=== PATIENT | female | born 1995 | race Caucasian/White ===

== ENCOUNTER 2019-07-16 09:16 | Outpatient (CLI) | payer BC ==
[2019-07-16 14:08] LABS: T4 (THYROXINE) 6.94 ug/dL (6.09-12.23)
[2019-07-16 14:11] LABS: THYROID STIMULATING HORMONE 1.33 uIU/mL (0.34-5.60)
[2019-07-16 14:17] LABS: PROLACTIN 7.88 ng/mL
== END 2019-07-16 23:59 | disposition home or self-care (01) ==
LOC: LAB.WCP 09:16
PROVIDERS: ATTEND Nurse Practitioner Obstetrics & Gynecology
DX: N97.0 Female infertility associated with anovulation (principal)
CPT/HCPCS: 36415; 84146; 84436; 84443

== ENCOUNTER 2019-07-21 10:59 | Outpatient (CLI) | payer BC | END 2019-07-21 23:59 | disposition home or self-care (01) | LOC: LAB.R 10:59 | PROVIDERS: ATTEND Nurse Practitioner Obstetrics & Gynecology | DX: N97.0 Female infertility associated with anovulation (principal) | CPT/HCPCS: 84144 ==

== ENCOUNTER 2019-07-26 08:00 | Outpatient (CLI) | payer BC | END 2019-07-26 23:59 | disposition home or self-care (01) | LOC: LAB.N 08:00 | PROVIDERS: ATTEND Nurse Practitioner Obstetrics & Gynecology | DX: Z32.01 Encounter for pregnancy test, result positive (principal) | CPT/HCPCS: 36415; 84702 ==

== ENCOUNTER 2019-07-30 12:21 | Outpatient (CLI) | payer OTHER | END 2019-07-30 12:22 | disposition critical access hospital (66) | LOC: EMS 12:21 | PROVIDERS: ATTEND Surgery | DX: O99.89 Other specified diseases and conditions complicating pregnancy, childbirth and the puerperium (principal); R55 Syncope and collapse; R10.32 Left lower quadrant pain | CPT/HCPCS: A0425; A0427 ==

== ENCOUNTER 2019-07-30 12:44 | Emergency (ER) | payer BC, OTHER ==
--- NOTE | 2019-07-30 12:54 | ED Physician Documentation ---
History of Present Illness - Stated complaint Stated Complaint: SYNCOPAL - History obtained from History obtained from: Patient - History of Present Illness Timing: Today ( at 5 weeks gestation, she has had some lower abdominal cramping today. No bleeding or fluid loss. Had a cramp and then had a short syncopal episode without injury while walking in her home. She feels fine now. No associated chest pain or trouble breathing. No significant nausea or vomiting. No diarrhea.) Review of Systems Constitutional: denies: Fever, Chills Cardiac: denies: Chest pain / pressure, Palpitations Respiratory: denies: Dyspnea, Cough GI: reports: Abdominal Pain. denies: Nausea, Vomiting, Diarrhea : denies: Dysuria, Frequency PD PAST MEDICAL HISTORY - Allergies Allergies/Adverse Reactions: Allergies Allergy/AdvReac Type Severity Reaction Status Date / Time No Known Drug Allergies Allergy Verified 07/30/19 12:48 PD ED PE NORMAL - Vitals Vital signs reviewed: Yes - General General: Alert and oriented X 3, No acute distress - Cardiac Cardiac: RRR, No murmur - Respiratory Respiratory: No respiratory distress, Clear bilaterally - Abdomen Abdomen: Normal bowel sounds, Soft, Non tender - Female Female : Other (Bedside ultrasound demonstrates a very full bladder without obvious intrauterine ) - Back Back: No CVA TTP, No spinal TTP - Extremities Extremities: No edema, No calf tenderness / cord - Neuro Neuro: Alert and oriented X 3, Normal speech Results - Vitals Vitals: Vital Signs - 24 hr 07/30/19 07/30/19 12:49 12:59 Temperature 36.9 C Heart Rate 86 86 Respiratory 16 16 Rate Blood Pressure 111/80 111/80 O2 Saturation 100 100 Oxygen O2 Source Room air - EKG (time done) 1259 Rate: Rate (enter#) (101) Rhythm: Sinus tachycardia [place]: Normal Intervals: Normal MT QRS: Normal Ischemia: Normal ST segments Computer interpretation: Agree with computer - Labs Labs: Laboratory Tests 07/30/19 07/30/19 07/30/19 12:58 13:15 13:15 WBC 4.9 RBC 4.16 L Hgb 11.3 L Hct 35.0 L MCV 84.1 MCH 27.2 MCHC 32.3 RDW 14.8 Plt Count 203 MPV 10.6 Neut # (Auto) 3.0 Lymph # (Auto) 1.4 L [place] # (Auto) 0.4 Eos # (Auto) 0.1 Baso # (Auto) 0.0 Absolute Nucleated RBC 0.00 Nucleated RBC % 0.0 Sodium 138 Potassium 3.7 Chloride 106 Carbon Dioxide 24 Anion Gap 8.0 BUN 9 Creatinine 0.6 Estimated GFR (MDRD) 123 Glucose 94 Calcium 8.8 Total Bilirubin 0.9 AST 18 ALT 16 Alkaline Phosphatase 50 Total Protein 7.0 Albumin 4.4 Globulin 2.6 Albumin/Globulin Ratio 1.7 Lipase 33 HCG, Quant Urine Color YELLOW Urine Clarity HAZY Urine pH 7.5 Ur Specific [place] 1.010 Urine Protein NEGATIVE Urine Glucose (UA) NEGATIVE Urine Ketones NEGATIVE Urine Occult Blood NEGATIVE Urine Nitrite NEGATIVE Urine Bilirubin NEGATIVE Urine Urobilinogen 0.2 (NORMAL) Ur Leukocyte Esterase TRACE H Urine RBC None Seen Urine WBC 6-10 H Ur Squamous Epith Cells MANY Squamous H Urine Bacteria Few Ur Microscopic Review INDICATED Urine Culture Comments NOT INDICATED 07/30/19 07/30/19 13:15 13:35 WBC RBC Hgb Hct MCV MCH MCHC RDW Plt Count MPV Neut # (Auto) Lymph # (Auto) [place] # (Auto) Eos # (Auto) Baso # (Auto) Absolute Nucleated RBC Nucleated RBC % Sodium Potassium Chloride Carbon Dioxide Anion Gap BUN Creatinine Estimated GFR (MDRD) Glucose Calcium Total Bilirubin AST ALT Alkaline Phosphatase Total Protein Albumin Globulin Albumin/Globulin Ratio Lipase HCG, Quant 3584.00 Urine Color YELLOW Urine Clarity CLEAR Urine pH 7.0 Ur Specific [place] 1.015 Urine Protein NEGATIVE Urine Glucose (UA) NEGATIVE Urine Ketones TRACE Urine Occult Blood NEGATIVE Urine Nitrite NEGATIVE Urine Bilirubin NEGATIVE Urine Urobilinogen 0.2 (NORMAL) Ur Leukocyte Esterase NEGATIVE Urine RBC Urine WBC Ur Squamous Epith Cells Urine Bacteria Ur Microscopic Review NOT INDICATED Urine Culture Comments NOT INDICATED - Rads (name of study) OB sono Radiology: See rad report (Likely gestational sac concordant with dates without other findings consistent with ectopic) PD MEDICAL DECISION MAKING - ED course ED course: 24-year-old woman presents with a syncopal episode in early . Ectopic is considered but unlikely based on the work-up today. Otherwise a negative work-up. Anemia was discussed with the patient, she says this is chronic and long- standing. Departure - Departure Disposition: 01 Home, Self Care Clinical Impression: Syncope Qualifiers: Syncope type: vasovagal syncope Qualified Code(s): R55 - Syncope and collapse Qualifiers: Weeks of gestation: less than 8 weeks Qualified Code(s): Z3A.01 - Less than 8 weeks gestation of Condition: Good Record reviewed to determine appropriate education?: Yes Instructions: ED Syncope Vasovagal Comments: If you develop more severe cramping, bleeding, or otherwise worsening symptoms please return for reevaluation. Otherwise follow-up with your OB as scheduled.
[2019-07-30 13:10] LABS: BILIRUBIN,URINE NEGATIVE (NEGATIVE); GLUCOSE, URINE (UA) NEGATIVE (NEGATIVE); KETONES,URINE (UA) NEGATIVE (NEGATIVE); LEUKOCYTE ESTERASE, URINE TRACE (NEGATIVE); NITRITE,URINE NEGATIVE (NEGATIVE); OCCULT BLOOD,URINE NEGATIVE (NEGATIVE); PH,URINE 7.5 PH (5.0-7.5); PROTEIN,URINE NEGATIVE (NEGATIVE); UROBILINOGEN,URINE 0.2 (NORMAL) E.U./dL (NORMAL)
[2019-07-30 13:11] LABS: CLARITY,URINE HAZY (CLEAR)
[2019-07-30 13:23] LABS: BASOPHILS % (AUTO) 0.2 %; EOSINOPHILS # (AUTO) 0.1 10^3/uL (0.0-0.7); EOSINOPHILS % (AUTO) 2.2 %; HGB - HEMOGLOBIN 11.3 g/dL (12.0-16.0); LYMPHOCYTES # (AUTO) 1.4 10^3/uL (1.5-3.5); MEAN CORPUSCULAR HEMOGLOBIN 27.2 pg (27.0-31.0); MEAN CORPUSCULAR HGB CONC 32.3 g/dL (32.0-36.0); MEAN CORPUSCULAR VOLUME 84.1 fL (81.0-99.0); MEAN PLATELET VOLUME 10.6 fL (7.9-10.8); MONOCYTES # (AUTO) 0.4 10^3/uL (0.0-1.0); MONOCYTES % (AUTO) 8.2 %; NEUTROPHILS % (AUTO) 60.2 %; PLT - PLATELET COUNT 203 10^3/uL (130-450); RED BLOOD COUNT 4.16 10^6/uL (4.20-5.40); RED CELL DISTRIBUTION WIDTH 14.8 % (12.0-15.0); WHITE BLOOD COUNT 4.9 x10^3/uL (4.8-10.8)
[2019-07-30 13:25] LABS: BACTERIA,URINE Few /HPF (None Seen); RBC,URINE None Seen /HPF (0-5); SQUAMOUS EPITHELIAL CELL,UR MANY Squamous (<= Few)
[2019-07-30 13:38] LABS: ALBUMIN 4.4 g/dL (3.2-5.5); ALBUMIN/GLOBULIN RATIO 1.7 (1.0-2.2); BILIRUBIN,TOTAL 0.9 mg/dL (0.2-1.0); CALCIUM 8.8 mg/dL (8.5-10.3); CREATININE 0.6 mg/dL (0.4-1.0)
[2019-07-30 13:44] LABS: BILIRUBIN,URINE NEGATIVE (NEGATIVE); CLARITY,URINE CLEAR (CLEAR); GLUCOSE, URINE (UA) NEGATIVE (NEGATIVE); KETONES,URINE (UA) TRACE mg/dL (NEGATIVE); LEUKOCYTE ESTERASE, URINE NEGATIVE (NEGATIVE); NITRITE,URINE NEGATIVE (NEGATIVE); OCCULT BLOOD,URINE NEGATIVE (NEGATIVE); PROTEIN,URINE NEGATIVE (NEGATIVE); UROBILINOGEN,URINE 0.2 (NORMAL) E.U./dL (NORMAL)
--- NOTE | 2019-07-30 15:21 | Ultrasound Report ---
Reason: pelvic pain, syncope Procedure Date: 07/30/2019 Accession Number: [id number] / [id number] Procedure: US - OB Transvaginal CPT Code: Final Report FULL RESULT: EXAM: FIRST TRIMESTER OBSTETRIC ULTRASOUND (Less than 11 weeks) EXAM DATE: 07/30/2019 03:03 PM. CLINICAL HISTORY: Pelvic pain. Syncope. LMP 06/24/2019. HCG 3584. LMP: 06/24/2019. COMPARISONS: None. TECHNIQUE: Transabdominal and transvaginal ultrasound examination with static image documentation. CLINICAL DATES: EGA 5 weeks, 2 days with RUBIO 03/30/2020 based on LMP. ASSESSMENT: Gestational Sac: Single intrauterine cystic structure is seen within the endometrial cavity. If this were to represent a gestational sac the mean gestational sac diameter: 5.2 mm = 5 weeks, 2 days. Embryo: CRL (crown-rump length) may be visualized although not definitively and may measure 1.8 mm. Cardiac activity: None present. Yolk sac: Not definitively seen. Amniotic fluid: Not accurately assessed at this gestational age. Early placenta: Not visible at this gestational age. Other: No perigestational fluid collection demonstrated. MATERNAL STRUCTURES: Uterus: Retroverted. Unremarkable. Cervix: Closed. Right Ovary/Adnexa: The ovary measures 4.5 x 2.1 x 2.3 cm, volume 11.3 cc. Normal echotexture a normal blood flow. Thick-walled cystic 1.5 x 1.0 x 0.8 cm lesion with peripheral vascularity most likely represents a corpus luteal cyst.. Left Ovary/Adnexa: The ovary measures 3.1 x 1.6 x 1.9 cm, volume 4.9 cc. Unremarkable. Free Fluid: Small to moderate volume of pelvic free fluid.. Other: None. IMPRESSION: 1. Intrauterine cystic collection which could represent a gestational sac, cyst or focal fluid. If this were to represent a gestational sac this would correspond with an estimated gestational age of 5 weeks, 2 days with RUBIO 03/30/2020 based on gestational sac assessment, which is concordant with clinical dates. No yolk sac or pole are definitively seen although suggested. No secondary findings of ectopic are identified. Recommend close clinical follow-up and correlation with serial serum beta hCG and follow-up ultrasound if indicated in 7-10 days. 2. Assigned dating is RUBIO 03/30/2020 based on LMP. 3. Normal ovaries with a right ovarian corpus luteal 1.5 cm cyst. RADIA
[2019-07-30 16:12] VITALS: BP 112/80
== END 2019-07-30 16:11 | disposition home or self-care (01) ==
LOC: EDUNIT# → ED 12:44
DX: O99.89 Other specified diseases and conditions complicating pregnancy, childbirth and the puerperium (principal); R55 Syncope and collapse; R00.0 Tachycardia, unspecified; Z3A.01 Less than 8 weeks gestation of pregnancy
CPT/HCPCS: 36415; 76801; 76817; 80053; 81001; 81003; 83690; 84702; 85025; 87086; 93005; 99283; 99284

== ENCOUNTER 2019-08-13 10:04 | Outpatient (CLI) | payer BC ==
--- NOTE | 2019-08-13 11:45 | Ultrasound Report ---
Reason: TEST POSITIVE Procedure Date: 08/13/2019 Accession Number: [id number] / [id number] Procedure: US - OB First Trimester CPT Code: Final Report FULL RESULT: EXAM: FIRST TRIMESTER OBSTETRIC ULTRASOUND (Less than 11 weeks) EXAM DATE: 08/13/2019 11:17 AM. CLINICAL HISTORY: TEST POSITIVE. LMP: 06/26/2019. COMPARISONS: None. TECHNIQUE: Transabdominal and transvaginal ultrasound examination with static image documentation. CLINICAL DATES: EGA 6 weeks 6 days with RUBIO 04/01/2020 based on LMP . ASSESSMENT: Gestational Sac: Single intrauterine. Mean gestational sac diameter: 19.2 mm = 6 weeks 6 days. Embryo: CRL (crown-rump length) 8.7 mm = 6 weeks 6 days. Cardiac activity: 1343 beats per minute. Yolk sac: 4.5 mm. Amniotic fluid: Not accurately assessed at this gestational age. Early placenta: Not visible at this gestational age. Other: Small perigestational anechoic fluid collection demonstrated 0.4 x 0.6 x 0.5 cm and 0.6 x 0.6 x 0.6 cm.. MATERNAL STRUCTURES: Uterus: Retroverted. Unremarkable. Cervix: Closed. Right Ovary/Adnexa: The ovary measures 5 x 2.2 x 2.1 cm, volume 12 cc. Corpus luteal cyst 2.6 cm. Left Ovary/Adnexa: The ovary measures 1.8 x 2.8 x 1.7 cm, volume 4.3 cc. Unremarkable. Free Fluid: Small. Other: None. IMPRESSION: 1. Single viable intrauterine at EGA 6 weeks 6 days with RUBIO 04/01/2020 based on crown-rump length, which is concordant with clinical dates. Small perigestational fluid collections largest 0.6 cm RADIA
== END 2019-08-13 10:05 | disposition home or self-care (01) ==
LOC: DI 10:04
PROVIDERS: ATTEND Nurse Practitioner Obstetrics & Gynecology
DX: Z32.01 Encounter for pregnancy test, result positive (principal)
CPT/HCPCS: 76801

== ENCOUNTER 2019-08-20 07:00 | Outpatient (CLI) | payer BC, OTHER ==
[2019-08-20 14:52] LABS: MUDS CUTOFF CONCENTRATIONS CUTOFF CONC BELOW:
[2019-08-20 15:14] LABS: AMPHETAMINE SCREEN,URINE NEGATIVE (NEGATIVE); BENZODIAZEPINES SCREEN, URINE NEGATIVE (NEGATIVE); COCAINE SCREEN URINE NEGATIVE (NEGATIVE); METHADONE SCREEN, URINE NEGATIVE (NEGATIVE); METHAMPHETAMINES SCREEN, URINE NEGATIVE (NEGATIVE); OPIATE SCREEN, URINE NEGATIVE (NEGATIVE); OXYCODONE SCREEN, URINE NEGATIVE (NEGATIVE); PROPOXYPHENE SCREEN, URINE NEGATIVE (NEGATIVE); TRICYCLIC ANTIDEPRESSANT,URINE NEGATIVE (NEGATIVE)
[2019-08-20 18:34] LABS: TRICHOMONAS VAGINALIS DNA NEGATIVE (NEGATIVE)
== END 2019-08-20 23:59 | disposition home or self-care (01) ==
LOC: LAB.R 07:00
PROVIDERS: ATTEND Nurse Practitioner Obstetrics & Gynecology
DX: Z36.89 Encounter for other specified antenatal screening (principal)
CPT/HCPCS: 80306; 87086; 87491; 87591; 87661

== ENCOUNTER 2019-09-21 07:00 | Outpatient (CLI) | payer OTHER | END 2019-09-21 23:59 | disposition home or self-care (01) | LOC: LAB.R 07:00 | PROVIDERS: ATTEND Nurse Practitioner Obstetrics & Gynecology | DX: R30.0 Dysuria (principal) | CPT/HCPCS: 87086 ==

== ENCOUNTER 2019-10-01 16:43 | Emergency (ER) | payer OTHER ==
[2019-10-01 17:17] LABS: BASOPHILS % (AUTO) 0.2 %; EOSINOPHILS # (AUTO) 0.1 10^3/uL (0.0-0.7); EOSINOPHILS % (AUTO) 1.7 %; HGB - HEMOGLOBIN 11.3 g/dL (12.0-16.0); LYMPHOCYTES # (AUTO) 1.6 10^3/uL (1.5-3.5); LYMPHOCYTES % (AUTO) 24.2 %; MEAN CORPUSCULAR HEMOGLOBIN 27.4 pg (27.0-31.0); MEAN CORPUSCULAR HGB CONC 32.8 g/dL (32.0-36.0); MEAN CORPUSCULAR VOLUME 83.5 fL (81.0-99.0); MEAN PLATELET VOLUME 10.9 fL (7.9-10.8); MONOCYTES # (AUTO) 0.4 10^3/uL (0.0-1.0); MONOCYTES % (AUTO) 5.6 %; NEUTROPHILS # (AUTO) 4.4 10^3/uL (1.5-6.6); PLT - PLATELET COUNT 181 10^3/uL (130-450); RED BLOOD COUNT 4.13 10^6/uL (4.20-5.40); RED CELL DISTRIBUTION WIDTH 13.5 % (12.0-15.0); WHITE BLOOD COUNT 6.4 x10^3/uL (4.8-10.8)
[2019-10-01 17:26] LABS: ALBUMIN 3.7 g/dL (3.2-5.5); ALBUMIN/GLOBULIN RATIO 1.1 (1.0-2.2); BILIRUBIN,TOTAL 0.6 mg/dL (0.2-1.0); CALCIUM 9.5 mg/dL (8.5-10.3); CREATININE 0.5 mg/dL (0.4-1.0)
[2019-10-01 17:57] LABS: BILIRUBIN,URINE NEGATIVE (NEGATIVE); GLUCOSE, URINE (UA) NEGATIVE (NEGATIVE); KETONES,URINE (UA) NEGATIVE (NEGATIVE); LEUKOCYTE ESTERASE, URINE NEGATIVE (NEGATIVE); NITRITE,URINE NEGATIVE (NEGATIVE); OCCULT BLOOD,URINE NEGATIVE (NEGATIVE); PROTEIN,URINE NEGATIVE (NEGATIVE); UROBILINOGEN,URINE 1 (NORMAL) E.U./dL (NORMAL)
[2019-10-01 17:59] LABS: CLARITY,URINE CLEAR (CLEAR)
[2019-10-01 18:00] LABS: HCG UR QUAL POSITIVE
--- NOTE | 2019-10-01 20:06 | ED Physician Documentation ---
PD HPI FEMALE - Stated complaint Stated Complaint: PELVIC PX/HIP PX - Chief complaint Chief Complaint: Abd Pain - History obtained from History obtained from: Patient - History of Present Illness Timing - onset: How many weeks ago (3-4) Timing - duration: Weeks Timing - details: Gradual onset, Waxing and waning Pain level max: 8 Associated symptoms: Back pain, Pelvic pain. 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 Her pain persists and she called her mechanic senior today and was advised to come to ED for further evaluation) Review of Systems Constitutional: denies: Fever, Chills, Sweats GI: reports: Nausea. denies: Abdominal Pain, Vomiting : reports: Now EGA (15 weeks). denies: Dysuria, Frequency, Vaginal bleeding Musculoskeletal: reports: Back pain (pelvic pain radiates to back) PD PAST MEDICAL HISTORY - Past Medical History Past Medical History: No - Past Surgical History Past Surgical History: No - Present Medications Home Medications: Ambulatory Orders Medication Instructions Recorded Confirmed No Known Home Medications 10/02/19 10/02/19 - Allergies Allergies/Adverse Reactions: Allergies Allergy/AdvReac Type Severity Reaction Status Date / Time latex AdvReac Itching Verified 10/01/19 16:54 - Social History Does the pt smoke?: No Smoking Status: Never smoker Does the pt drink ETOH?: No Does the pt have substance abuse?: No - Immunizations Immunizations are current?: Yes - POLST Patient has POLST: No PD ED PE NORMAL - Vitals Vital signs reviewed: Yes - General General: Alert and oriented X 3, No acute distress, Well developed/nourished - HEENT HEENT: Moist mucous membranes - Cardiac Cardiac: RRR, No murmur - Respiratory Respiratory: No respiratory distress, Clear bilaterally - Abdomen Abdomen: Soft, Non distended, Other (mild tenderness across anterior pelvis without rebound or guarding) - Back Back: No CVA TTP Results - Vitals Vitals: Oxygen O2 Source Room air - Labs Labs: Laboratory Tests 0110/01/19 10/01/19 17:05 17:05 17:30 WBC 6.4 RBC 4.13 L Hgb 11.3 L Hct 34.5 L MCV 83.5 MCH 27.4 MCHC 32.8 RDW 13.5 Plt Count 181 MPV 10.9 H Neut # (Auto) 4.4 Lymph # (Auto) 1.6 [place] # (Auto) 0.4 Eos # (Auto) 0.1 Baso # (Auto) 0.0 Absolute Nucleated RBC 0.00 Nucleated RBC % 0.0 Sodium 135 Potassium 3.2 L Chloride 103 Carbon Dioxide 23 Anion Gap 9.0 BUN 6 Creatinine 0.5 Estimated GFR (MDRD) 152 Glucose 101 H Calcium 9.5 Total Bilirubin 0.6 AST 15 ALT 11 Alkaline Phosphatase 45 Total Protein 7.0 Albumin 3.7 Globulin 3.3 Albumin/Globulin Ratio 1.1 Lipase 40 Urine Color YELLOW Urine Clarity CLEAR Urine pH 6.0 Ur Specific [place] 1.025 Urine Protein NEGATIVE Urine Glucose (UA) NEGATIVE Urine Ketones NEGATIVE Urine Occult Blood NEGATIVE Urine Nitrite NEGATIVE Urine Bilirubin NEGATIVE Urine Urobilinogen 1 (NORMAL) Ur Leukocyte Esterase NEGATIVE Ur Microscopic Review NOT INDICATED Urine Culture Comments NOT INDICATED Urine HCG, Qual 10/01/19 17:30 WBC RBC Hgb Hct MCV MCH MCHC RDW Plt Count MPV Neut # (Auto) Lymph # (Auto) [place] # (Auto) Eos # (Auto) Baso # (Auto) Absolute Nucleated RBC Nucleated RBC % Sodium Potassium Chloride Carbon Dioxide Anion Gap BUN Creatinine Estimated GFR (MDRD) Glucose Calcium Total Bilirubin AST ALT Alkaline Phosphatase Total Protein Albumin Globulin Albumin/Globulin Ratio Lipase Urine Color Urine Clarity Urine pH Ur Specific [place] 1.025 Urine Protein Urine Glucose (UA) Urine Ketones Urine Occult Blood Urine Nitrite Urine Bilirubin Urine Urobilinogen Ur Leukocyte Esterase Ur Microscopic Review Urine Culture Comments Urine HCG, Qual POSITIVE - Rads (name of study) OB 14w+ US Radiology: Prelim report reviewed, See rad report PD MEDICAL DECISION MAKING - ED course Complexity details: reviewed results, re-evaluated patient, considered differential, d/w patient Departure - Departure Disposition: 01 Home, Self Care Clinical Impression: , Abdominal pain Condition: Good Instructions: ED Pelvic Pain Preg UKO 2 or 3 Tri Follow-Up: Jo Dickey, PILY, PLANT CHANGER [Primary Care Provider] - Discharge Date/Time: 10/02/19 00:34
--- NOTE | 2019-10-01 23:16 | Ultrasound Report ---
Reason: 15 weeks , pelvic pain Procedure Date: 10/01/2019 Accession Number: [id number] / [id number] Procedure: US - OB 14+ Weeks CPT Code: Final Report FULL RESULT: EXAM: LIMITED OBSTETRICAL ULTRASOUND EXAM DATE: 10/01/2019 09:54 PM. CLINICAL HISTORY: 15 weeks , pelvic pain. COMPARISON: None. TECHNIQUE: Real-time sonographic evaluation of the fetus performed by the coating machine operator helper. Multiple inbound sales representative static images were saved for review. Additional transvaginal imaging to more accurately evaluate cervical length/placental position/etc. DATING: Established EGA 14 weeks/2 days with RUBIO 7 . GENERAL EVALUATION [place] . Cardiac activity: 140 bpm. movement: Visualized. Presentation: Variable. Placenta: Low-lying position. Less than 2 cm from internal loss, likely due to early . Amniotic fluid: Normal. PAMELLA 11.7 cm. MVP 3.4 cm. BIOMETRY: BPD: 2.59 cm, 14 weeks 4 days HC: 9.79 cm, 14 weeks 4 days FL: 1.22 cm, 13 weeks 4 days AC: 8.12 cm, 14 weeks 3 days US age: 14 weeks 2 days, RUBIO of 03/29/2020. MATERNAL STRUCTURES Left ovary: 3.6 x 1.3 x 1.8 cm. Normal vascular flow seen. Cervix: Long and closed IMPRESSION: 1. Valladares live intrauterine with gestational age 14 weeks/2 days based on current ultrasound. 2. Low-lying placenta, less than 2 cm from internal os is likely secondary to early . Cervix long and closed. 3. Detailed anatomic survey and placental position to be reassessed between 18-20 weeks of gestation. RADIA
[2019-10-02 00:35] VITALS: BP 110/65
== END 2019-10-02 00:34 | disposition home or self-care (01) ==
LOC: ED 16:43
DX: O99.89 Other specified diseases and conditions complicating pregnancy, childbirth and the puerperium (principal); R10.2 Pelvic and perineal pain; O44.42 Low lying placenta NOS or without hemorrhage, second trimester; Z3A.14 14 weeks gestation of pregnancy
CPT/HCPCS: 36415; 76805; 80053; 81001; 81003; 81025; 83690; 85025; 87086; 99284

== ENCOUNTER 2019-10-08 09:56 | Outpatient (CLI) | payer OTHER | END 2019-10-08 09:57 | disposition critical access hospital (66) | LOC: EMS 09:56 | PROVIDERS: ATTEND Surgery | DX: O99.89 Other specified diseases and conditions complicating pregnancy, childbirth and the puerperium (principal); R55 Syncope and collapse; R10.30 Lower abdominal pain, unspecified | CPT/HCPCS: A0425; A0429 ==

== ENCOUNTER 2019-10-08 10:13 | Emergency (ER) | payer OTHER ==
[2019-10-08] MEDS ORDERED: SODIUM CHLORIDE 0.9% 1,000 ML IV ONE (10:39)
[2019-10-08 10:59] LABS: BASOPHILS % (AUTO) 0.2 %; EOSINOPHILS # (AUTO) 0.1 10^3/uL (0.0-0.7); EOSINOPHILS % (AUTO) 0.9 %; HGB - HEMOGLOBIN 10.5 g/dL (12.0-16.0); LYMPHOCYTES # (AUTO) 1.1 10^3/uL (1.5-3.5); LYMPHOCYTES % (AUTO) 19.9 %; MEAN CORPUSCULAR HEMOGLOBIN 27.7 pg (27.0-31.0); MEAN CORPUSCULAR HGB CONC 33.5 g/dL (32.0-36.0); MEAN CORPUSCULAR VOLUME 82.6 fL (81.0-99.0); MEAN PLATELET VOLUME 10.9 fL (7.9-10.8); MONOCYTES # (AUTO) 0.3 10^3/uL (0.0-1.0); NEUTROPHILS % (AUTO) 72.8 %; PLT - PLATELET COUNT 138 10^3/uL (130-450); RED BLOOD COUNT 3.79 10^6/uL (4.20-5.40); RED CELL DISTRIBUTION WIDTH 13.5 % (12.0-15.0); WHITE BLOOD COUNT 5.5 x10^3/uL (4.8-10.8)
[2019-10-08 11:07] LABS: ALBUMIN 3.3 g/dL (3.2-5.5); ALBUMIN/GLOBULIN RATIO 1.1 (1.0-2.2); BILIRUBIN,TOTAL 0.8 mg/dL (0.2-1.0); CALCIUM 8.5 mg/dL (8.5-10.3); CREATININE 0.5 mg/dL (0.4-1.0); TOTAL PROTEIN 6.3 g/dL (6.7-8.2)
--- NOTE | 2019-10-08 11:09 | ED Physician Documentation ---
PD HPI SYNCOPE - Stated complaint Stated Complaint: NEAR SYNCOPAL - Chief complaint Chief Complaint: Neuro - History obtained from History obtained from: Patient - History of Present Illness Witnessed: Witnessed Timing - onset: How many minutes ago (1) Duration: Minutes (1) Associated symptoms: Nausea / vomiting, Abdominal pain. No: Headache, Chest pain Contributing factors: Noxious stimulae (she was standing in line at store or such, and had onset of lower abd cramp with nausea, then felt lightheaded and lowered to the ground. No fall nor injury. Has had this happen abruptly a couple of other times during this . No vaginal bleeding. Has history of endometriosis in the past with surgery for adhesions in the past.). No: Recent med change, Decreased PO intake Injury occurred: No: Fell, Head injury, Neck injury Similar symptoms before: No diagnosis Recently seen: Clinic (normal visits.), Emergency Dept (had abd pain and syncope when agout 7 weeks . [place] to be dehydration at the time.) Review of Systems Constitutional: denies: Fever, Chills Nose: denies: Rhinorrhea / runny nose, Congestion Throat: denies: Sore throat Respiratory: denies: Cough GI: reports: Abdominal Pain (for several minutes, improved here in ER.), Nausea, Vomiting, Constipation. denies: Diarrhea : denies: Dysuria, Frequency Neurologic: denies: Generalized weakness, Confused, Altered mental status, Headache PD PAST MEDICAL HISTORY - Past Medical History Past Medical History: Yes Cardiovascular: None Respiratory: None Neuro: None Endocrine/Autoimmune: None GI: None MANAGING PARTNER: Endometriosis : None HEENT: None Psych: None Musculoskeletal: None Derm: None - Past Surgical History Past Surgical History: No - Present Medications Home Medications: Ambulatory Orders Medication Instructions Recorded Confirmed Docusate Sodium 100 mg PO DAILY #30 capsule 10/08/19 Naproxen 375 mg PO BID #20 tablet 10/08/19 - Allergies Allergies/Adverse Reactions: Allergies Allergy/AdvReac Type Severity Reaction Status Date / Time latex AdvReac Itching Verified 10/01/19 16:54 - Social History Does the pt smoke?: No Smoking Status: Never smoker Does the pt drink ETOH?: No Does the pt have substance abuse?: No - Immunizations Immunizations are current?: Yes - POLST Patient has POLST: No PD ED PE NORMAL - Vitals Vital signs reviewed: Yes - General General: Alert and oriented X 3, No acute distress, Well developed/nourished - HEENT HEENT: Moist mucous membranes, Pharynx benign - Neck Neck: Supple, no meningeal sign, No adenopathy - Cardiac Cardiac: RRR, No murmur - Respiratory Respiratory: Clear bilaterally, Other - Abdomen Abdomen: Normal bowel sounds, Soft, Non distended, No organomegaly, Other (gravid with fundus few cm below umbilicus c/w dates. bedside U/S showing normal movement, fluid, FHR, and no free fluid in pelvis. ) Results - Vitals Vitals: Oxygen O2 Source Room air - Labs Labs: Laboratory Tests 10/08/19 10/08/19 10/08/19 10:50 10:50 11:06 WBC 5.5 RBC 3.79 L Hgb 10.5 L Hct 31.3 L MCV 82.6 MCH 27.7 MCHC 33.5 RDW 13.5 Plt Count 138 MPV 10.9 H Neut # (Auto) 4.0 Lymph # (Auto) 1.1 L [place] # (Auto) 0.3 Eos # (Auto) 0.1 Baso # (Auto) 0.0 Absolute Nucleated RBC 0.00 Nucleated RBC % 0.0 Sodium 135 Potassium 3.6 Chloride 106 Carbon Dioxide 21 Anion Gap 8.0 BUN 8 Creatinine 0.5 Estimated GFR (MDRD) 152 Glucose 89 Calcium 8.5 Total Bilirubin 0.8 AST 14 ALT 13 Alkaline Phosphatase 42 Total Protein 6.3 L Albumin 3.3 Globulin 3.0 Albumin/Globulin Ratio 1.1 Lipase 32 Urine Color YELLOW Urine Clarity HAZY Urine pH 7.0 Ur Specific [place] 1.015 Urine Protein NEGATIVE Urine Glucose (UA) NEGATIVE Urine Ketones NEGATIVE Urine Occult Blood NEGATIVE Urine Nitrite NEGATIVE Urine Bilirubin NEGATIVE Urine Urobilinogen 1 (NORMAL) Ur Leukocyte Esterase NEGATIVE Urine RBC 0-5 Urine WBC 0-3 Ur Squamous Epith Cells MANY Squamous H Amorphous Sediment Few Urine Bacteria Many H Urine Casts 0-2 Granular Casts Urine Mucus Marked Strands Ur Microscopic Review INDICATED Urine Culture Comments NOT INDICATED PD MEDICAL DECISION MAKING - ED course Complexity details: reviewed results (bedside U/S shows normal movement, heart rate, and no free fluid in pelvis. her lower pain could be prior adhesions from endometriosis or cyst with . No obvious problem with the . ), considered differential, d/w patient Departure - Departure Disposition: Home, Self Care Clinical Impression: Lower abdominal pain, Syncope, near Qualifiers: Weeks of gestation: 16 weeks Qualified Code(s): Z3A.16 - 16 weeks gestation of Condition: Stable Record reviewed to determine appropriate education?: Yes Instructions: ED Abdominal Pain Unkn Cause Follow-Up: Jo Dickey CNM, ANTONIO [Primary Care Provider] - Prescriptions: Docusate Sodium 100 mg PO DAILY #30 capsule Naproxen 375 mg PO BID #20 tablet Comments: Stay well-hydrated. Consider short term anti-inflammatory of naproxen twice daily for a week. Add Tylenol if needed for pains. Also add docusate stool softener daily for the next several days to week and then as needed for constipation. Follow-up with your AIR DEFENCE OFFICER. The cause of your pain episode is not clear. Consider the possibility the uterus had an impact on prior adhesions or scar tissue in some of those were disrupted. That would be the reasoning on the anti-inflammatory over the next week. Forms: Activity restrictions Discharge Date/Time: 10/08/19 12:42
[2019-10-08 11:12] LABS: BILIRUBIN,URINE NEGATIVE (NEGATIVE); CLARITY,URINE HAZY (CLEAR); GLUCOSE, URINE (UA) NEGATIVE (NEGATIVE); KETONES,URINE (UA) NEGATIVE (NEGATIVE); LEUKOCYTE ESTERASE, URINE NEGATIVE (NEGATIVE); NITRITE,URINE NEGATIVE (NEGATIVE); OCCULT BLOOD,URINE NEGATIVE (NEGATIVE); PROTEIN,URINE NEGATIVE (NEGATIVE); UROBILINOGEN,URINE 1 (NORMAL) E.U./dL (NORMAL)
[2019-10-08 11:21] LABS: AMORPHOUS SEDIMENT,UR Few /LPF; BACTERIA,URINE Many /HPF (None Seen); MUCUS,URINE Marked Strands; RBC,URINE 0-5 /HPF (0-5); SQUAMOUS EPITHELIAL CELL,UR MANY Squamous (<= Few)
[2019-10-08] MEDS ORDERED: NAPROXEN 250 MG TABLET PO STA (11:41)
[2019-10-08] MEDS ORDERED: ACETAMINOPHEN 325 MG TABLET PO STA (11:41)
[2019-10-08] MEDS ORDERED: DOCUSATE SODIUM 100 MG CAPSULE PO STA (11:42)
[2019-10-08 12:42] VITALS: BP 118/79
== END 2019-10-08 12:42 | disposition home or self-care (01) ==
LOC: EDUNIT# → ED 10:13
DX: O99.89 Other specified diseases and conditions complicating pregnancy, childbirth and the puerperium (principal); R10.30 Lower abdominal pain, unspecified; R55 Syncope and collapse; Z3A.16 16 weeks gestation of pregnancy
CPT/HCPCS: 36415; 80053; 81001; 83690; 85025; 99283; 99284; A9270; 81003; 87086

== ENCOUNTER 2019-10-20 08:00 | Outpatient (CLI) | payer OTHER ==
[2019-10-20 19:21] LABS: BASOPHILS % (AUTO) 0.3 %; EOSINOPHILS # (AUTO) 0.1 10^3/uL (0.0-0.7); EOSINOPHILS % (AUTO) 0.7 %; HGB - HEMOGLOBIN 10.5 g/dL (12.0-16.0); LYMPHOCYTES # (AUTO) 1.2 10^3/uL (1.5-3.5); LYMPHOCYTES % (AUTO) 17.6 %; MEAN CORPUSCULAR HEMOGLOBIN 26.4 pg (27.0-31.0); MEAN CORPUSCULAR HGB CONC 31.8 g/dL (32.0-36.0); MEAN CORPUSCULAR VOLUME 82.9 fL (81.0-99.0); MONOCYTES # (AUTO) 0.4 10^3/uL (0.0-1.0); MONOCYTES % (AUTO) 5.3 %; NEUTROPHILS # (AUTO) 5.1 10^3/uL (1.5-6.6); NEUTROPHILS % (AUTO) 75.7 %; PLT - PLATELET COUNT 176 10^3/uL (130-450); RED BLOOD COUNT 3.98 10^6/uL (4.20-5.40); RED CELL DISTRIBUTION WIDTH 13.7 % (12.0-15.0); WHITE BLOOD COUNT 6.8 x10^3/uL (4.8-10.8)
[2019-10-21 12:07] LABS: HEPATITIS B SURFACE ANTIGEN NON-REACTIVE (NON-REACTIVE); HEPATITIS C ANTIBODY NON-REACTIVE (NON-REACTIVE)
[2019-10-21 13:24] LABS: HIV AG/AB 4TH GEN NON-REACTIVE (NON-REACTIVE)
== END 2019-10-20 23:59 | disposition home or self-care (01) ==
LOC: LAB.N 08:00
PROVIDERS: ATTEND Nurse Practitioner Obstetrics & Gynecology
DX: Z36.89 Encounter for other specified antenatal screening (principal); O99.89 Other specified diseases and conditions complicating pregnancy, childbirth and the puerperium; R30.0 Dysuria
CPT/HCPCS: 36415; 81599; 85025; 86762; 86803; 86850; 86900; 86901; 87086; 87340; 87389

== ENCOUNTER 2019-10-29 11:57 | Outpatient (CLI) | payer OTHER ==
--- NOTE | 2019-11-01 02:04 | Ultrasound Report ---
Reason: SCREENING, SUPERVISION OF Procedure Date: 10/29/2019 Accession Number: [id number] / [id number] Procedure: US - OB Detailed Eval CPT Code: Final Report FULL RESULT: EXAM: COMPLETE OBSTETRICAL ULTRASOUND EXAM DATE: 10/29/2019 01:17 PM. CLINICAL HISTORY: anatomic survey. COMPARISON: OB 14+ WEEKS 10/01/2019 9:54 PM. TECHNIQUE: Real-time sonographic evaluation of the fetus performed by the educational aid. Multiple it sales representative static images were saved for review. Additional transvaginal imaging to more accurately evaluate cervical length/placental position/etc. DATING: Established EGA 18 weeks 2 days with RUBIO 03/29/2020 based on stated dates. EGA 17 weeks 6 days with RUBIO 04/01/2020 based on LMP. EGA 17 weeks 6 days with RUBIO 04/01/2020 based on the current ultrasound. GENERAL EVALUATION [place] . Cardiac activity: 145 bpm. movement: Visualized. Presentation: Cephalic/variable. Placenta: Anterior position. Low lying placenta. Placental margin is 1.3 cm from the internal os. Umbilical cord: 3 vessel cord. Central placental cord origin. Amniotic fluid: Subjectively normal. MVP 4.3 cm. BIOMETRY Bi-Parietal Diameter (BPD): 3.9 cm, 17 weeks 6 days Head Circumference (HC): 14.6 cm, 17 weeks 5 days Abdominal Circumference (AC): 12.2 cm, 17 weeks 6 days Femur Length (FL): 2.6 cm 17 weeks 6 days ays Estimated Weight: 212 g, 20.5 percentile for 18 weeks 2 days. ANATOMY The intracranial structures, face/nose/lips, spine, 4 chamber heart and outflow tracts, stomach, abdominal wall and cord insertion, diaphragm, kidneys, bladder, and extremities were visualized and demonstrate no abnormality. Profile/nasal bone suboptimally seen. MATERNAL STRUCTURES Uterus: Unremarkable. Cervix: Long and closed. Transabdominal length 2.8 cm. Right ovary/adnexa: Adnexa unremarkable. Right ovary not well seen due to bowel gas. Left ovary/adnexa: Unremarkable. Free fluid: None. IMPRESSION: 1. Vall[place] live intrauterine with gestational age 18 weeks 2 days based on stated dates. 2. Estimated weight is within expected limits for assigned dating. 3. The visualized anatomy appears normal. No anatomic abnormalities are detected at this time. Profile/nasal bone suboptimally seen due to active fetus. 4. Low lying placenta. RADIA
== END 2019-10-29 11:58 | disposition home or self-care (01) ==
LOC: DI 11:57
PROVIDERS: ATTEND Nurse Practitioner Obstetrics & Gynecology
DX: Z36.89 Encounter for other specified antenatal screening (principal); O44.42 Low lying placenta NOS or without hemorrhage, second trimester; Z3A.18 18 weeks gestation of pregnancy
CPT/HCPCS: 76811

== ENCOUNTER 2019-11-19 09:20 | Outpatient (CLI) | payer OTHER ==
--- NOTE | 2019-11-19 10:34 | Ultrasound Report ---
Reason: LOW LYING PLACENTA, F/U TO [facility] Procedure Date: 11/19/2019 Accession Number: [id number] / [id number] Procedure: US - OB F/U or Repeat CPT Code: Final Report FULL RESULT: EXAM: FOLLOW-UP OBSTETRICAL ULTRASOUND EXAM DATE: 11/19/2019 09:32 AM. CLINICAL HISTORY: Low lying placenta, follow-up to [facility]. COMPARISON: OB DETAILED EVAL 10/29/2019 12:03 PM. TECHNIQUE: Real-time sonographic evaluation of the fetus performed by the roller pneumatic. Multiple guest services representative static images were saved for review. DATING: Established EGA 21 weeks 2 days with RUBIO 03/29/2020 based on working due date. EGA 20 weeks 6 days with RUBIO 04/01/2020 based on first ultrasound and LMP. GENERAL EVALUATION [place] . Cardiac activity: 160 bpm. movement: Visualized. Presentation: Cephalic. Placenta: Anterior position, not low lying. Amniotic fluid: Normal. PAMELLA 14.9 cm. MVP 4.2 cm. ANATOMY The profile view including nasal bone is well visualized and no abnormality is seen. IMPRESSION: 1. [place] live intrauterine with gestational age 21 weeks 2 days based on working due date. 2. Anterior placenta within normal limits, not low lying 3. Normal completion of the anatomy survey. RADIA
== END 2019-11-19 09:21 | disposition home or self-care (01) ==
LOC: DI 09:20
PROVIDERS: ATTEND Nurse Practitioner Obstetrics & Gynecology
DX: O44.02 Complete placenta previa NOS or without hemorrhage, second trimester (principal); Z3A.21 21 weeks gestation of pregnancy
CPT/HCPCS: 76816

== ENCOUNTER 2019-11-26 07:00 | Outpatient (CLI) | payer OTHER ==
[2019-11-26 21:43] LABS: CANDIDA GROUP DNA POSITIVE (NEGATIVE); CANDIDA KRUSEI DNA NEGATIVE (NEGATIVE); TRICHOMONAS VAGINALIS DNA NEGATIVE (NEGATIVE)
== END 2019-11-26 23:59 | disposition home or self-care (01) ==
LOC: LAB.R 07:00
PROVIDERS: ATTEND Nurse Practitioner Obstetrics & Gynecology
DX: N76.0 Acute vaginitis (principal)
CPT/HCPCS: 87661; 87801

== ENCOUNTER 2019-12-22 12:32 | Outpatient (CLI) | payer OTHER ==
[2019-12-22 13:29] LABS: BILIRUBIN,URINE NEGATIVE (NEGATIVE); CLARITY,URINE HAZY (CLEAR); GLUCOSE, URINE (UA) NEGATIVE (NEGATIVE); KETONES,URINE (UA) NEGATIVE (NEGATIVE); LEUKOCYTE ESTERASE, URINE NEGATIVE (NEGATIVE); NITRITE,URINE NEGATIVE (NEGATIVE); OCCULT BLOOD,URINE NEGATIVE (NEGATIVE); PH,URINE 7.5 PH (5.0-7.5); PROTEIN,URINE NEGATIVE (NEGATIVE); UROBILINOGEN,URINE 1 (NORMAL) E.U./dL (NORMAL)
[2019-12-22 13:32] VITALS: BP 115/78
[2019-12-22 13:43] LABS: BACTERIA,URINE Few /HPF (None Seen); RBC,URINE 0-5 /HPF (0-5); SQUAMOUS EPITHELIAL CELL,UR FEW Squamous (<= Few)
--- NOTE | 2019-12-22 15:37 | PROVIDER PROGRESS NOTE ---
- HPI Chief Complaint: Labor Check Current : Current EDU 03/29/20 Gestation 26 Weeks and 0 Days 2 Para 1 Vital Signs Temperature 98.8 F 12/22/19 12:53 Heart Rate 102 H 12/22/19 12:53 Respiratory Rate 18 12/22/19 12:53 Blood Pressure 115/78 12/22/19 12:53 O2 Saturation 100 12/22/19 12:53 Temperature 98.8 F 12/22/19 12:53 Heart Rate 102 H 12/22/19 12:53 Respiratory Rate 18 12/22/19 12:53 Blood Pressure 115/78 12/22/19 12:53 O2 Saturation 100 12/22/19 12:53 - Exam GEN: Mild distress, NAD at close of visit CV: RR RESP: Nl effort ABD: gravid, S&NT/ND SVE: bladder tender, posterior cervix, high and difficult to palpate. Closed EFM 140 mod denise 10x10 accels occ vars--> AGA TOCO; Quiet UA wnl FFN neg TVCL 3.92 cm - Procedures NST Procedure: Cat I tracing/ Appropriate for gestational age Service Date of procedure: 12/22/19 Procedure Details: NST for suspected labor AGA and quiet TOCO TVCL 3.9 cm, reassuring FFN neg Findings: AGA and quiet TOCO TVCL 3.9 cm, reassuring FFN neg - Plan Plan: Pelvic pain at 26+0 wga Last IC more than 2 days ago FFN neg TVCL 3.9 cm; reassuring UA wnl GCCT and vaginitis panel pending Patient appears comfortable at close of visit Reassured regarding TVCL and FFN as suspicion low for PTL Will contact patient with vaginitis panel results Warning signs reviewed FU tomorrow in clinic for scheduled PNV A total of 2.5 hours was spent with patient in evaluating pelvic pain in .
--- NOTE | 2019-12-22 18:05 | Ultrasound Report ---
Reason: rule out labor Procedure Date: 12/22/2019 Accession Number: [id number] / [id number] Procedure: US - OB Transvaginal CPT Code: Final Report FULL RESULT: EXAM: OB TRANSVAGINAL EXAM DATE: 12/22/2019 03:10 PM. CLINICAL HISTORY: Concern for labor. Evaluate cervical length. Rule out labor. LMP: Unknown. COMPARISONS: OB TRANSVAGINAL 07/30/2019 1:52 PM. TECHNIQUE: Transvaginal and transabdominal ultrasound examination with static image documentation. CLINICAL DATES: EGA 26 weeks 0 days with RUBIO 03/29/2020 based on established EGA. ASSESSMENT: Single living intrauterine fetus in breech presentation. cardiac activity is 149 bpm. Placental location is anterior. No previa. The cervix appears long and closed, measures 3.9 cm in length. IMPRESSION: 1. Long and closed cervix measuring 3.9 cm in length. See above. RADIA
[2019-12-22 20:01] LABS: CANDIDA GROUP DNA NEGATIVE (NEGATIVE); CANDIDA KRUSEI DNA NEGATIVE (NEGATIVE); TRICHOMONAS VAGINALIS DNA NEGATIVE (NEGATIVE)
[2019-12-22 21:12] LABS: TRICHOMONAS VAGINALIS DNA NEGATIVE (NEGATIVE)
== END 2019-12-22 15:42 | disposition home or self-care (01) ==
LOC: WFO 12:32 → FBP 12:35 → WFO 15:42
PROVIDERS: ATTEND Obstetrics & Gynecology
DX: O99.89 Other specified diseases and conditions complicating pregnancy, childbirth and the puerperium (principal); R10.2 Pelvic and perineal pain; Z3A.26 26 weeks gestation of pregnancy
CPT/HCPCS: 76817; 81001; 82731; 87081; 87086; 87491; 87591; 87661; 87801; 99215

== ENCOUNTER 2020-02-08 12:34 | Outpatient (CLI) | payer OTHER ==
[2020-02-08 18:04] LABS: BASOPHILS % (AUTO) 0.3 %; EOSINOPHILS # (AUTO) 0.1 10^3/uL (0.0-0.7); EOSINOPHILS % (AUTO) 1.1 %; HGB - HEMOGLOBIN 8.3 g/dL (12.0-16.0); LYMPHOCYTES # (AUTO) 1.7 10^3/uL (1.5-3.5); LYMPHOCYTES % (AUTO) 15.9 %; MEAN CORPUSCULAR HEMOGLOBIN 21.6 pg (27.0-31.0); MEAN CORPUSCULAR HGB CONC 28.2 g/dL (32.0-36.0); MEAN CORPUSCULAR VOLUME 76.4 fL (81.0-99.0); MEAN PLATELET VOLUME 11.1 fL (7.9-10.8); MONOCYTES # (AUTO) 0.6 10^3/uL (0.0-1.0); NEUTROPHILS # (AUTO) 7.8 10^3/uL (1.5-6.6); NEUTROPHILS % (AUTO) 74.5 %; PLT - PLATELET COUNT 216 10^3/uL (130-450); RED BLOOD COUNT 3.85 10^6/uL (4.20-5.40); RED CELL DISTRIBUTION WIDTH 16.7 % (12.0-15.0); WHITE BLOOD COUNT 10.5 x10^3/uL (4.8-10.8)
[2020-02-08 19:51] LABS: PLATELET ESTIMATE, MANUAL NORMAL (130-450,000) (NORMAL); PLATELET MORPHOLOGY NORMAL APPEARANCE (NORMAL)
== END 2020-02-08 23:59 | disposition home or self-care (01) ==
LOC: LAB.WCP 12:34
PROVIDERS: ATTEND Advanced Practice Midwife
DX: Z34.90 Encounter for supervision of normal pregnancy, unspecified, unspecified trimester (principal); Z36.89 Encounter for other specified antenatal screening
CPT/HCPCS: 36415; 82947; 85025; 86850

== ENCOUNTER 2020-03-03 14:00 | Outpatient (CLI) | payer OTHER ==
[2020-03-03 18:06] LABS: HGB - HEMOGLOBIN 7.5 g/dL (12.0-16.0); MEAN CORPUSCULAR HEMOGLOBIN 20.9 pg (27.0-31.0); MEAN CORPUSCULAR HGB CONC 29.3 g/dL (32.0-36.0); MEAN CORPUSCULAR VOLUME 71.3 fL (81.0-99.0); MEAN PLATELET VOLUME 10.5 fL (7.9-10.8); RED BLOOD COUNT 3.59 10^6/uL (4.20-5.40); RED CELL DISTRIBUTION WIDTH 18.4 % (12.0-15.0); WHITE BLOOD COUNT 10.5 x10^3/uL (4.8-10.8)
[2020-03-03 18:35] LABS: % IRON SATURATION 4 % (20-50); IRON 24 ug/dL (28-170); TOTAL IRON BINDING CAPACITY 655 ug/dL (250-450); TRANSFERRIN 468 mg/dL (192-382)
== END 2020-03-03 23:59 | disposition home or self-care (01) ==
LOC: LAB.WCP 14:00
PROVIDERS: ATTEND Advanced Practice Midwife
DX: O99.019 Anemia complicating pregnancy, unspecified trimester (principal); D64.9 Anemia, unspecified; Z3A.00 Weeks of gestation of pregnancy not specified
CPT/HCPCS: 36415; 81599; 82728; 83021; 83540; 84466; 85014; 85018; 85027; 85041

== ENCOUNTER 2020-03-08 08:00 | Outpatient (CLI) | payer OTHER ==
[2020-03-08 21:39] LABS: TRICHOMONAS VAGINALIS DNA NEGATIVE (NEGATIVE)
== END 2020-03-08 23:59 | disposition home or self-care (01) ==
LOC: LAB.R 08:00
PROVIDERS: ATTEND Advanced Practice Midwife
DX: Z36.85 Encounter for antenatal screening for Streptococcus B (principal)
CPT/HCPCS: 87491; 87591; 87661; 87797

== ENCOUNTER 2020-03-08 16:38 | Outpatient (CLI) | payer OTHER ==
[2020-03-08] MEDS ORDERED: ONDANSETRON 4 MG/2 ML VIAL IVP PRN (16:51)
[2020-03-08] MEDS ORDERED: IRON DEXTRAN 1,000 MG in SODIUM CHLORIDE 0.9% 250 ML IV ONE (18:00)
[2020-03-08 19:47] VITALS: BP 125/87
--- NOTE | 2020-03-09 10:53 | PROCEDURE REPORT ---
- HPI Diagnosis/Indication for NST: Other (Iron infusion, monitor tolerance) Current EDU 03/29/20 Gestation 37 Weeks and 0 Days 2 Para 1 Vital Signs Temperature 37.4 C 03/08/20 17:08 Heart Rate 112 H 03/08/20 17:08 Respiratory Rate 17 03/08/20 17:08 Blood Pressure 133/82 H 03/08/20 17:08 O2 Saturation 99 03/08/20 17:08 Temperature 37.3 C 03/08/20 19:47 Heart Rate 114 H 03/08/20 19:47 Respiratory Rate 18 03/08/20 19:47 Blood Pressure 125/87 H 03/08/20 19:47 O2 Saturation 99 03/08/20 19:47 - NST Procedure NST Procedure Start Date 03/08/20 Start Time 17:00 Stop Time 17:26 Vibroacoustic Stimulation Used Yes Patient States Movement Yes - Results and Plan Findings/Impression: NST performed 03/08/2020 NST Read 03/08/2020 Findings: Reassuring Baseline 140s, moderate variability, accels and no decels Plan: No further NSTs indicated at this time unless further infusions are needed Final Diagnosis 24yo and 37.0 wks presented for an iron infusion for severe iron deficiency anemia Continue with regular care
== END 2020-03-08 19:50 | disposition home or self-care (01) ==
LOC: WFO 16:38 → FBP 16:41 → WFO 19:50
PROVIDERS: ATTEND Advanced Practice Midwife
DX: O99.013 Anemia complicating pregnancy, third trimester (principal); D50.9 Iron deficiency anemia, unspecified; Z3A.37 37 weeks gestation of pregnancy
CPT/HCPCS: 59025; 96374; 96375; J1750

== ENCOUNTER 2020-03-09 16:18 | Outpatient (CLI) | payer OTHER ==
[2020-03-09 16:26] VITALS: BP 128/85
[2020-03-09 16:59] LABS: BILIRUBIN,URINE NEGATIVE (NEGATIVE); GLUCOSE, URINE (UA) NEGATIVE (NEGATIVE); KETONES,URINE (UA) NEGATIVE (NEGATIVE); LEUKOCYTE ESTERASE, URINE NEGATIVE (NEGATIVE); NITRITE,URINE NEGATIVE (NEGATIVE); OCCULT BLOOD,URINE NEGATIVE (NEGATIVE); PH,URINE 6.5 PH (5.0-7.5); PROTEIN,URINE NEGATIVE (NEGATIVE); UROBILINOGEN,URINE 1 (NORMAL) E.U./dL (NORMAL)
[2020-03-09 17:00] LABS: CLARITY,URINE CLEAR (CLEAR)
--- NOTE | 2020-04-01 17:02 | PROVIDER PROGRESS NOTE ---
- HPI Chief Complaint: Labor Check Current : Current EDU 03/29/20 Gestation 37 Weeks and 1 Days 2 Para 1 Vital Signs Temperature 99.0 F 03/09/20 16:25 Heart Rate 117 H 03/09/20 16:25 Respiratory Rate 18 03/09/20 16:25 Blood Pressure 128/85 H 03/09/20 16:25 O2 Saturation 100 03/09/20 16:25 Temperature 99.0 F 03/09/20 16:25 Heart Rate 117 H 03/09/20 16:25 Respiratory Rate 18 03/09/20 16:25 Blood Pressure 128/85 H 03/09/20 16:25 O2 Saturation 100 03/09/20 16:25 - Exam SVE closed/long/high per RN exam - Procedures OB Procedure Performed: NST Diagnosis/Indication for NST: Other (labor assessment) NST Procedure: EFM 135 mod denise 15x15 accels no decels TOCO: irritable Service Date of procedure: 03/09/20 Findings: Cat I tracing Cervical exam closed/long/high Final DX: false labor DC to home with warning signs reviewed Routine OB care
== END 2020-03-09 17:19 | disposition home or self-care (01) ==
LOC: WFO 16:18 → FBP 16:19 → WFO 17:19
PROVIDERS: ATTEND Advanced Practice Midwife
DX: O47.1 False labor at or after 37 completed weeks of gestation (principal); Z3A.37 37 weeks gestation of pregnancy
CPT/HCPCS: 81001; 81003; 87086; 99213

== ENCOUNTER 2020-03-20 14:04 | Outpatient (CLI) | payer OTHER ==
[2020-03-20 14:31] VITALS: BP 123/83
[2020-03-20 15:13] LABS: RUPTURE OF MEMBRANES PLUS NEGATIVE (NEGATIVE)
--- NOTE | 2020-04-01 16:56 | PROVIDER PROGRESS NOTE ---
- HPI Chief Complaint: Other ( pt presents to triage at 38+5 weeks gestation complaining of leakage of fluid since appx 0900 this morning with contractions that "come and go." No VB, +FM. Hx of 7 hour labor with first baby. Nitrazine negative) Current : Current EDU 03/29/20 Gestation 38 Weeks and 5 Days 2 Para 1 Vital Signs Temperature 99.1 F 03/20/20 14:20 Heart Rate 112 H 03/20/20 14:20 Respiratory Rate 18 03/20/20 14:20 Blood Pressure 123/83 H 03/20/20 14:20 O2 Saturation 100 03/20/20 14:20 Temperature 99.1 F 03/20/20 14:20 Heart Rate 112 H 03/20/20 14:20 Respiratory Rate 18 03/20/20 14:20 Blood Pressure 123/83 H 03/20/20 14:20 O2 Saturation 100 03/20/20 14:20 - Procedures OB Procedure Performed: NST Diagnosis/Indication for NST: Other (Labor assessment/Rule out rupture) NST Procedure: EFM 125 mod denise 15x15 accels no decels TOCO: occ Findings: Neg ROM+ Cat I tracing - Plan Plan: 25 yo at 38+5 wga here for rule out rupture of membranes Neg ROM+ and negative nitrazine NST Cat I tracing Patient discharged to home with warning signs Routine OB follow-up DX: False labor
== END 2020-03-20 15:45 | disposition home or self-care (01) ==
LOC: WFO 14:04 → FBP 14:08 → WFO 15:45
PROVIDERS: ATTEND Advanced Practice Midwife
DX: O47.1 False labor at or after 37 completed weeks of gestation (principal); O99.019 Anemia complicating pregnancy, unspecified trimester; D64.9 Anemia, unspecified; Z3A.38 38 weeks gestation of pregnancy
CPT/HCPCS: 36415; 84112; 85027; 99213

== ENCOUNTER 2020-03-20 15:48 | Outpatient (CLI) | payer OTHER ==
[2020-03-20 15:59] LABS: HGB - HEMOGLOBIN 9.9 g/dL (12.0-16.0); MEAN CORPUSCULAR HEMOGLOBIN 23.9 pg (27.0-31.0); MEAN CORPUSCULAR HGB CONC 29.7 g/dL (32.0-36.0); MEAN CORPUSCULAR VOLUME 80.2 fL (81.0-99.0); MEAN PLATELET VOLUME 10.7 fL (7.9-10.8); PLT - PLATELET COUNT 194 10^3/uL (130-450); RED BLOOD COUNT 4.15 10^6/uL (4.20-5.40); WHITE BLOOD COUNT 9.1 x10^3/uL (4.8-10.8)
== END 2020-03-20 15:49 | disposition home or self-care (01) ==
LOC: LAB 15:48
PROVIDERS: ATTEND Advanced Practice Midwife
DX: O99.019 Anemia complicating pregnancy, unspecified trimester (principal); D64.9 Anemia, unspecified; Z3A.00 Weeks of gestation of pregnancy not specified
CPT/HCPCS: 36415; 85027

== ENCOUNTER 2020-03-25 23:22 | Inpatient (IN) | payer OTHER ==
[2020-03-26] MEDS ORDERED: SODIUM CHLORIDE FLUSH 0.9% 10 ML SYRINGE IVP PRN (00:09)
[2020-03-26] MEDS ORDERED: TRANEXAMIC ACID 1,000 MG in SODIUM CHLORIDE 0.9% 100ML 100 ML IV PRN (00:09)
[2020-03-26] MEDS ORDERED: fentaNYL 100 MCG/2 ML VIAL IVP PRN (00:09)
[2020-03-26] MEDS ORDERED: OXYTOCIN 10 UNIT/ML VIAL IM PRN (00:09)
[2020-03-26] MEDS ORDERED: LIDOCAINE-MPF 1% 30 ML VIAL ID PRN (00:09)
[2020-03-26] MEDS ORDERED: METHYLERGONOVINE 0.2 MG/ML VIAL IM PRN (00:09)
[2020-03-26] MEDS ORDERED: miSOPROStoL 200 MCG TABLET BC PRN (00:09)
[2020-03-26] MEDS ORDERED: CARBOPROST TROMETHAMINE 250 MCG/ML AMP IM PRN (00:09)
[2020-03-26] MEDS: LACTATED RINGERS 1,000 ML IV SCH ×3 (01:00→16:50)
[2020-03-26 01:17] LABS: BASOPHILS % (AUTO) 0.3 %; EOSINOPHILS # (AUTO) 0.1 10^3/uL (0.0-0.7); HGB - HEMOGLOBIN 9.9 g/dL (12.0-16.0); LYMPHOCYTES # (AUTO) 2.2 10^3/uL (1.5-3.5); LYMPHOCYTES % (AUTO) 19.3 %; MEAN CORPUSCULAR HEMOGLOBIN 24.2 pg (27.0-31.0); MEAN CORPUSCULAR HGB CONC 29.5 g/dL (32.0-36.0); MEAN CORPUSCULAR VOLUME 82.2 fL (81.0-99.0); MEAN PLATELET VOLUME 10.1 fL (7.9-10.8); MONOCYTES # (AUTO) 0.8 10^3/uL (0.0-1.0); MONOCYTES % (AUTO) 6.7 %; NEUTROPHILS # (AUTO) 8.1 10^3/uL (1.5-6.6); NEUTROPHILS % (AUTO) 71.5 %; PLT - PLATELET COUNT 285 10^3/uL (130-450); RED BLOOD COUNT 4.09 10^6/uL (4.20-5.40); WHITE BLOOD COUNT 11.3 x10^3/uL (4.8-10.8)
[2020-03-26 01:40] LABS: PLATELET ESTIMATE, MANUAL NORMAL (130-450,000) (NORMAL); PLATELET MORPHOLOGY NORMAL APPEARANCE (NORMAL); RBC MORPHOLOGY (MULTIPLE) NORMAL APPEARANCE (NORMAL)
[2020-03-26] MEDS: OXYTOCIN/SODIUM CHLORIDE 500 ML IV SCH (04:32)
[2020-03-26] MEDS: CALCIUM CARBONATE CHEW 500 MG TABLET PO SCH (05:05)
[2020-03-26] MEDS ORDERED: ROPIVACAINE 0.2% 200 MG/100 ML BAG EP ONE (05:32)
[2020-03-26] MEDS ORDERED: METOCLOPRAMIDE 10 MG/2 ML VIAL IVP PRN (06:15)
[2020-03-26] MEDS ORDERED: ePHEDrine 50 MG/ML VIAL IVP PRN (06:15)
[2020-03-26] MEDS ORDERED: ONDANSETRON 4 MG/2 ML VIAL IVP PRN (06:15)
[2020-03-26] MEDS ORDERED: diphenhydrAMINE INJ 50 MG/ML VIAL IVP PRN (06:15)
[2020-03-26] MEDS ORDERED: ROPIVACAINE 0.2% 200 MG/100 ML BAG EP PRN (06:15)
[2020-03-26] MEDS ORDERED: NALBUPHINE 10 MG/ML AMP IVP PRN (06:15)
[2020-03-26] MEDS ORDERED: NALOXONE 0.4 MG/ML VIAL IVP PRN (06:15)
[2020-03-26] MEDS ORDERED: LACTATED RINGERS 500 ML IV ONE (06:15)
--- NOTE | 2020-03-26 06:20 | ANESTHESIA ---
Pre-Anesthesia VS, & Labs - Diagnosis labor - Procedure labor epidural Vital Signs: Temp Pulse Resp BP Pulse Ox 36.7 C 117 H 18 118/78 100 03/26/20 00:35 03/25/20 23:30 03/25/20 23:30 03/25/20 23:30 03/25/20 23:30 Height 5 ft 4 in Weight (kg) 77.111 kg Body Mass Index 21.4 - NPO Other (clears) - Is Patient ?: Yes - Lab Results Current Lab Results: Laboratory Tests 03/26/20 01:10: WBC 11.3 H, RBC 4.09 L, Hgb 9.9 L, Hct 33.6 L, MCV 82.2, MCH 24.2 L, MCHC 29.5 L, Plt Count 285, MPV 10.1, Neut # (Auto) 8.1 H, Lymph # (Auto) 2.2, [place] # (Auto) 0.8, Eos # (Auto) 0.1, Baso # (Auto) 0.0, Absolute Nucleated RBC 0.00, Nucleated RBC % 0.0, Manual Slide Review Indicated, Platelet Estimate NORMAL (130-450,000), Platelet Morphology NORMAL APPEARANCE, RBC Morph Micro Appear NORMAL APPEARANCE Fish Bones: 03/26/20 01:10 Home Medications and Allergies Active Medications Calcium Carbonate/Glycine (Tums) 500 mg PO BID [facility] Last Admin: 03/26/20 05:05 Dose: 500 mg Documented by: Carboprost Tromethamine (Hemabate) 250 mcg IM Q15M PRN PRN Reason: Step 4: Hemorrhage protocol Stop: 03/28/20 00:09 Diphenhydramine HCl (Benadryl Inj) 12.5 - 25 mg IVP Q6HR PRN PRN Reason: ITCHING Ephedrine Sulfate () 5 mg IVP Q5M PRN PRN Reason: For SBP<100;give until SBP>100 Fentanyl (Fentanyl) 50 mcg IVP Q1H PRN PRN Reason: PAIN Lactated Ringer's (Lr) 1,000 mls @ 150 mls/hr IV .Q6H40M [facility] Last Admin: 03/26/20 01:00 Dose: 150 mls/hr Documented by: Oxytocin/Sodium Chloride (Pitocin/Sodium Chloride) 500 mls @ 999 mls/hr IV PRN PRN; Protocol PRN Reason: POST- HEMORR PREVENTION Stop: 03/28/20 00:09 Tranexamic Acid 1,000 mg/ (Sodium Chloride) 110 mls @ 660 mls/hr IV ONCE PRN PRN Reason: EBL >1200mL and within 3hr Stop: 03/28/20 00:09 Oxytocin/Sodium Chloride (Pitocin/Sodium Chloride) 500 mls @ 1 mls/hr IV TITR KAREN; Protocol Last Admin: 03/26/20 04:32 Dose: 1 milliunit/min, 1 mls/hr Documented by: Lactated Ringer's (Lr) 500 mls @ 999 mls/hr IV ONCE ONE Stop: 03/26/20 06:45 Ropivacaine (Naropin 0.2%) 200 mg in 100 mls @ 0 mls/hr EP PRN PRN; Protocol PRN Reason: PAIN Lidocaine HCl (Xylocaine-Mpf 1% Vial) 30 ml ID ONCE PRN PRN Reason: PERINEAL REPAIR Stop: 03/28/20 00:09 Methylergonovine Maleate (Methergine Inj) 0.2 mg IM ONCE PRN PRN Reason: Step 2: Hemorrhage protocol Stop: 03/28/20 00:09 Metoclopramide HCl (Reglan Inj) 10 mg IVP Q6HR PRN PRN Reason: Nausea / Vomiting Misoprostol (Cytotec) 800 mcg BC ONCE PRN PRN Reason: Step 3: Hemorrhage protocol Stop: 03/28/20 00:09 Nalbuphine HCl (Nubain) 2.5 - 5 mg IVP Q4H PRN PRN Reason: ITCHING Naloxone HCl (Narcan) 0.1 mg IVP Q2M PRN PRN Reason: RR<8 Ondansetron HCl (Zofran Inj) 4 mg IVP Q4H PRN PRN Reason: Nausea / Vomiting Ondansetron HCl (Zofran Inj) 4 mg IVP Q6HR PRN PRN Reason: Nausea / Vomiting Oxytocin (Pitocin) 10 unit IM ONCE PRN PRN Reason: Step one: If no IV access Stop: 03/28/20 00:09 Sodium Chloride (Normal Saline Flush 0.9%) 10 ml IVP PRN PRN PRN Reason: NEEDED PER PROVIDER ORDERS Last Admin: 03/26/20 01:00 Dose: 10 ml Documented by: Allergies/Adverse Reactions: Allergies Allergy/AdvReac Type Severity Reaction Status Date / Time gluten AdvReac Unknown Verified 03/20/20 15:17 latex AdvReac Itching Verified 10/01/19 16:54 Milk Containing Products AdvReac Unknown Verified 03/20/20 15:17 Anes History & Medical History - Anesthetic History Anesthesia Complications: reports: No previous complications - Medical History Cardiovascular: reports: None Pulmonary: reports: None Gastrointestinal: reports: None Urinary: reports: None Neuro: reports: None Musculoskeletal: reports: None Endocrine/Autoimmune: reports: None Blood Disorders: reports: None Skin: reports: None Smoking Status: Never smoker - Surgical History Gynecologic: Other (for endometriosis) Exam General: Alert Dental: WNL Mouth Opening: Greater than 4 Fingerbreadths Neck Mobility: Normal Mallampati classification: II Thyromental Distance: greater than 6 cm Respiratory: Lungs clear Cardiovascular: Regular rate Plan Anesthesia Type: Epidural Consent for Procedure(s) Verified and Reviewed: Yes Code Status: Attempt Resuscitation ASA classification: 2-Mild systemic disease Is this case an emergency?: No
[2020-03-26] MEDS: ONDANSETRON 4 MG/2 ML VIAL IVP PRN ×2 (07:25→21:43)
--- NOTE | 2020-03-26 09:39 | HISTORY & PHYSICAL EXAMINATION ---
Admit History - Visit Reason Visit Reason: Membranes rupture - : 3 Parity: 1 Care: positive: [facility] Risk/History: positive: Other (CT prior to , neg TAMEKA x2) Complications This : positive: None Smoking Status: Never smoker - Mother's Labs Mother's Blood Type: positive: A Mother's RH: positive: Positive (sve with sweep: 1.5/70/-2/soft/post Reviewed labor precautions and FM monitoring. Reviewed PIH warning s/sx. Pt verbalized understanding and agrees to above plan. She denies further questions or concerns today. Elective induction discussed risks/benefits. Scheduled for 03/28 at 0630. Consent signed) GBS: positive: Group B Step Negative Rubella Status: positive: Immune - Other Maternal History Other Maternal History: Underwent SVE in clinic on 03/23/2020 and was 1.5/70/-2 station Presented to triage with gross LOF at 23:30 on 03/25/2020 Initial SVE was 2/70/-2. Possible meconium staining; appears clear at present, Initial U/S: @ 6.6wks gestation c/w LMP dating. A pos/Rubella immune Gentic testing: Quad screen negative FAS: WNL with the exception of profile/nasal bone suboptimally visualized. Placenta is anterior, no previa (was low lying, but resolved on 11/18 f/u). 3VC. PAMELLA WNL. Size c/w dating. F/u Glucola: 109 (Substitution for 1hr GTT- This value is one hour after an observed ingestion of 30 standard jellybeans (per NCBI)) TDAP : declined CBC at 28wks: 29.4/8.3- Iron infusion ordered 02/07; will repeat 4 weeks GBS & GC/CT-neg/neg HSV: Reports self. Acyclovir needed for prophylaxis. Breast pump Rx: reports already has MOD: Anticipate . Partner Beau. Baby BOY- Renzo. pp contraception: partner to have vasectomy. Hematology consult PP for chronic iron deficiency despite oral supp. Meds/Allgy - Home Medications Home Medications: Ambulatory Orders Medication Instructions Recorded Confirmed Docusate Sodium 100 mg PO DAILY #30 capsule 10/08/19 Naproxen 375 mg PO BID #20 tablet 10/08/19 - Allergies Allergies/Adverse Reactions: Allergies Allergy/AdvReac Type Severity Reaction Status Date / Time gluten AdvReac Unknown Verified 03/20/20 15:17 latex AdvReac Itching Verified 10/01/19 16:54 Milk Containing Products AdvReac Unknown Verified 03/20/20 15:17 Review of Systems - Other Findings Other Findings: As per HPI, otherwise remaining systems are negative. Physical - Abdominal Exam Vital Signs: Temp Pulse Resp BP Pulse Ox 98.1 F 117 H 18 118/78 100 03/26/20 00:35 03/25/20 23:30 03/25/20 23:30 03/25/20 23:30 03/25/20 23:30 Contraction Frequency (min/apart): Q4-5 at admit Contraction Intensity: positive: Moderate - Monitoring Heart Rate Baseline: 125 mod denise 15x15 accels no decels Strip Review: positive: Category I - Presentation Presentation: positive: Vertex - Vaginal Exam Membranes: positive: Membranes ruptured Dilation (in cm): 2 Effacement (%): 70 Station: positive: -2 Cervical Position: positive: Midposition - Other Notes Labor Progress Note/Additional Text: per RN exam Plan for Labor - Plan For Labor Plan for Labor: 25 yo at 39+4 wga admitted with SROM/PROM SROM: Patient desires low intervention delivery Counseled that we can expectantly manage for 4-5 hours and then our strong recommendation would be to augment with pitocin in the absence of significant cervical change FWB: Vertex, GBS neg, appropriate growth, Cat I tracing -unclear meconium status -No RPR on record, ordered this am -cEFM PAIN: Epidural as desired -Fentanyl 50 mcg Q1h to max of 4 doses and not to be given after 7 cm ENDO: Patient reports hx of hyperthyroidism -Review of records show normal thyroid function -Not on medications at current Anticipate
--- NOTE | 2020-03-26 10:36 | PROVIDER PROGRESS NOTE ---
Subjective - Prog Note Date Prog Note Date: 03/26/20 Prog Note Time: 09:51 - Subjective Subjective: Patient made minimal change in cervical dilation over 3 hours of observation. Started on pitocin for augmention. Current dose 7 mU/min Epidural placed at approximately 6:30 am. Currently comfortable Objective - Vital Signs/Intake & Output Reviewed Vital Signs: Yes Vital Signs: 91 16 115/82 Intake & Output: Intake & Output 03/23/20 03/24/20 03/25/20 03/26/20 23:59 23:59 23:59 23:59 Output Total 170 Balance -170 - Objective General Appearance: positive: No acute distress Respiratory: positive: No respiratory distress Cardiovascular: positive: Other (reg rate) Abdomen: positive: Non-tender (gravid, S&NT) Skin: positive: Color nml, Warm Extremities: positive: Non-tender, No pedal edema, Other (epidural in place, limited mobility) Neurologic/Psychiatric: positive: Oriented x3 Comments/Other: SVE 3/80/high head sitting high on pelvic bone, c/w posterio positioning - Lab Results Fish Bones: 03/26/20 01:10 Other Labs: Lab Results x24hrs 03/26/20 Range/Units 01:10 WBC 11.3 H (4.8-10.8) x10^3/uL RBC 4.09 L (4.20-5.40) 10^6/uL Hgb 9.9 L (12.0-16.0) g/dL Hct 33.6 L (37.0-47.0) % MCV 82.2 (81.0-99.0) fL MCH 24.2 L (27.0-31.0) pg MCHC 29.5 L (32.0-36.0) g/dL Plt Count 285 (130-450) 10^3/uL MPV 10.1 (7.9-10.8) fL Neut # (Auto) 8.1 H (1.5-6.6) 10^3/uL Lymph # (Auto) 2.2 (1.5-3.5) 10^3/uL [place] # (Auto) 0.8 (0.0-1.0) 10^3/uL Eos # (Auto) 0.1 (0.0-0.7) 10^3/uL Baso # (Auto) 0.0 (0.0-0.1) 10^3/uL Absolute Nucleated RBC 0.00 x10^3/uL Nucleated RBC % 0.0 /100WBC Manual Slide Review Indicated Platelet Estimate NORMAL (130-450,000) (NORMAL) Platelet Morphology NORMAL APPEARANCE (NORMAL) RBC Morph Micro Appear NORMAL APPEARANCE (NORMAL) - Other Results/Comments Other Results/Comments: EFM 125 mod denise 15x15 accels no decel TOCO: Q3-5 min Assessment/Plan - Problem List (1) SROM (spontaneous rupture of membranes) Impression: Currently on pitocin for augmentation. Most recent dose 10 mU/min No significant change in SVE Recommend position change to ameliorate posterior positioning of fetus GBS neg Cat I tracing Epidural in place. Patient has period of tachycardia associated with provocation of anxiety Reviewed Valsalva maneuvers to reduce heart rate Has had extensive Cardiology eval including normal echo this Reviewed chart notes- thyroid dysfunction dx by executive administrative asst and managed with supplements TFTs have been wnl this without intervention RPR drawn this am Reviewed questionable meconium status with pediatrics Likely prolonged rupture of membranes given slow progess of labor course Pediatrics plans to be present for delivery. Cont with augmentation of labor Anticipate
[2020-03-26] MEDS ORDERED: miSOPROStoL 100 MCG TABLET BC SCH ×2 (14:30→21:25)
--- NOTE | 2020-03-26 16:35 | CONSULTATION NOTE ---
Consultation Report: CADD pump: Called to remove air from line in CADD pump discovered a leaking bag of local. Replaced and restarted infusion holding continuos rate for patients request.
[2020-03-26] MEDS: ACETAMINOPHEN 325 MG TABLET PO PRN (19:14)
--- NOTE | 2020-03-26 20:40 | PROVIDER PROGRESS NOTE ---
Subjective - Prog Note Date Prog Note Date: 03/26/20 Prog Note Time: 20:38 - Subjective Subjective: Patient has been uncomfortable with contractions. Last VE was about 2 hours prior to current exam and was relatively unchanged. Patient has had pitocin to 16 mU/min, was rested for an hour and then received misoprostol 50 mcg BC x1. She was due for her seocnd dose about an hour ago but has been luli frequently and painfully since then. Reports pain in the LLQ only with contraction. No bloody show. Fluid continues to run clear. Has received acet aminophen 650 mg about 1 hour ago. No febrile temps. Objective - Vital Signs/Intake & Output Vital Signs: 137/95 103 100% 37.2 Intake & Output: Intake & Output 03/23/20 03/24/20 03/25/20 03/26/20 23:59 23:59 23:59 23:59 Intake Total 2004.6 Output Total 1645 Balance 359.6 - Objective General Appearance: positive: Moderate distress, Other (with contractions) Respiratory: positive: No respiratory distress Cardiovascular: positive: Other (mild tachycardia. Has tachycardia at baseline) Abdomen: positive: Non-tender, Other (gravid, S&NT. No point tenderness or TTP in LLQ) Skin: positive: Color nml Extremities: positive: No pedal edema, Other (s/p epidural) Neurologic/Psychiatric: positive: Oriented x3 Comments/Other: /-1 - Lab Results Fish Bones: 03/26/20 01:10 Other Labs: Lab Results x24hrs 03/26/20 Range/Units 01:10 WBC 11.3 H (4.8-10.8) x10^3/uL RBC 4.09 L (4.20-5.40) 10^6/uL Hgb 9.9 L (12.0-16.0) g/dL Hct 33.6 L (37.0-47.0) % MCV 82.2 (81.0-99.0) fL MCH 24.2 L (27.0-31.0) pg MCHC 29.5 L (32.0-36.0) g/dL Plt Count 285 (130-450) 10^3/uL MPV 10.1 (7.9-10.8) fL Neut # (Auto) 8.1 H (1.5-6.6) 10^3/uL Lymph # (Auto) 2.2 (1.5-3.5) 10^3/uL [place] # (Auto) 0.8 (0.0-1.0) 10^3/uL Eos # (Auto) 0.1 (0.0-0.7) 10^3/uL Baso # (Auto) 0.0 (0.0-0.1) 10^3/uL Absolute Nucleated RBC 0.00 x10^3/uL Nucleated RBC % 0.0 /100WBC Manual Slide Review Indicated Platelet Estimate NORMAL (130-450,000) (NORMAL) Platelet Morphology NORMAL APPEARANCE (NORMAL) RBC Morph Micro Appear NORMAL APPEARANCE (NORMAL) Assessment/Plan - Problem List (1) SROM (spontaneous rupture of membranes) Impression: IOL for SROM: -S/p pitocin 16 mU/min; discontinued - Had miso 50 mcg x1 Now luli with cervical change Expt management Cat I tracing Calling anesthesia to adjust epidural
[2020-03-26] MEDS: OXYTOCIN/SODIUM CHLORIDE 500 ML IV PRN ×3 (21:17→22:00)
[2020-03-26] MEDS ORDERED: ceFAZolin 2 GM in SODIUM CHLORIDE 0.9% 100ML 100 ML IV SCH ×3 (21:23→22:00)
--- NOTE | 2020-03-26 21:37 | DELIVERY NOTE ---
Delivery Note - Labor Labor: positive: Augmented by oxytocin - Delivery Method Delivery Method: positive: Spontaneous vaginal delivery - Cervical Ripening Method Cervical Ripening Method: positive: Misoprostil - Presentation Presentation: positive: Vertex - Nuchal Cord Nuchal Cord: positive: None - Anesthetic Anesthetic Type: - Amniotic Fluid Description Amniotic Fluid Description: positive: Light meconium - Episiotomy Type Episiotomy Type: positive: None - Laceration Laceration: positive: None - [place]: positive: Placed in direct skin contact with mother, Suctioned, Bulb syringe sex: positive: Male - Cord Cord: positive: 3 vessels - Placenta Placenta: positive: Expressed - Estimated Blood Loss Estimated Blood Loss (in cc): 300 - Post Delivery Events Post Delivery Events: positive: Hemorrhage - Delivery Comments (Free Text/Narrative) Delivery Comments (Free Text/Narrative): STAGE: Patient is a 25 yo admitted at 39+4 wga for SROM. Patient presented to triage with gross LOF at 23:30 on 03/25/2020. Initial SVE was 2/70/-2. Light meconium staining. GBS negative. Patient progressed to 3 cm without augmentation and then was started on pitocin for augmentation. She reached a max dose of 16 mU/min without significant cervical change. Pitocin was discontinued. She was rested for 1 hour and then was given a single dose of misoprostol 50 mcg BC x1. She began luli spontaneously. Epidural for pain management. At approximately 20:30, she was 5/C/-1 station. Progressed to complete at 20:48. cat I tracing throughout Stage I. Transient mild range blood pressures while pushing. STAGE II: Patient started pushing at 20:57. She pushed well for 14 minutes to deliver a viable male at 21:11. He presented in direct OA and rotated to MONET with left shoulder anterior. Delivered to maternal abdomen. No nuchal cord. Cord clamped x2 at 1 minute of life. Brought to warmer by Pediatrics fur further assessment. Apgars were 7/9. STAGE III: Placenta delivered at 21:26 with manual expression. It was examined and found to be intact. Patient had brisk bleeding after delivery, relieved with bimanual massage, manual exploration of the uterus, pitocin, misoprostol 600 mcg BC x1 and hemabate 0.25 mg IM x1. She will be given cefazolin 2 g IV x1 post for ppx given manual exploration of the uterus. Perineum was examined and she did not have any lacerations. Total EBL was 300 cc.
[2020-03-26] MEDS ORDERED: DIPHENOX/ATROPINE 2.5/0.025 MG TABLET PO PRN (21:40)
[2020-03-26] MEDS ORDERED: ONDANSETRON ODT 4 MG TABLET TL PRN (21:49)
[2020-03-26] MEDS ORDERED: DOCUSATE SODIUM 100 MG CAPSULE PO PRN (21:49)
[2020-03-26] MEDS ORDERED: HYDROCORTISONE 1% CREAM 28 GM TUBE PR PRN (21:49)
[2020-03-26] MEDS ORDERED: LACTATED RINGERS 1,000 ML IV SCH (22:00)
[2020-03-26] MEDS ORDERED: SODIUM CHLORIDE 0.9% 100ML 100 ML IV ONE (22:05)
[2020-03-26 22:35] LABS: BASOPHILS # (AUTO) 0.1 10^3/uL (0.0-0.1); BASOPHILS % (AUTO) 0.3 %; EOSINOPHILS % (AUTO) 0.1 %; HGB - HEMOGLOBIN 10.9 g/dL (12.0-16.0); LYMPHOCYTES # (AUTO) 2.1 10^3/uL (1.5-3.5); LYMPHOCYTES % (AUTO) 9.9 %; MEAN CORPUSCULAR HEMOGLOBIN 24.3 pg (27.0-31.0); MEAN CORPUSCULAR HGB CONC 29.2 g/dL (32.0-36.0); MEAN CORPUSCULAR VOLUME 83.3 fL (81.0-99.0); MEAN PLATELET VOLUME 9.9 fL (7.9-10.8); MONOCYTES % (AUTO) 4.6 %; NEUTROPHILS # (AUTO) 17.7 10^3/uL (1.5-6.6); NEUTROPHILS % (AUTO) 84.1 %; PLT - PLATELET COUNT 297 10^3/uL (130-450); RED BLOOD COUNT 4.48 10^6/uL (4.20-5.40)
[2020-03-26 22:47] LABS: URIC ACID 4.4 mg/dL (2.6-7.2)
[2020-03-26 22:56] LABS: PLATELET ESTIMATE, MANUAL NORMAL (130-450,000) (NORMAL); PLATELET MORPHOLOGY NORMAL APPEARANCE (NORMAL)
[2020-03-26] MEDS ORDERED: ceFAZolin 1 GM VIAL IV SCH (23:00)
[2020-03-26] MEDS ORDERED: CEFAZOLIN SODIUM IN 0.9 % NACL 2 GM/100 ML BAG IV SCH (23:00)
[2020-03-26] MEDS ORDERED: ceFAZolin 1 GM VIAL ONE (23:19)
[2020-03-27] MEDS: IBUPROFEN 600 MG TABLET PO SCH ×4 (00:59→21:06)
[2020-03-27] MEDS: ACETAMINOPHEN 325 MG TABLET PO PRN (08:48)
[2020-03-27] MEDS: ACETAMINOPHEN 500 MG TABLET PO SCH (15:26)
[2020-03-27] MEDS: LACTATED RINGERS 1,000 ML IV SCH (17:47)
[2020-03-27] MEDS: CALCIUM CARBONATE CHEW 500 MG TABLET PO SCH (17:47)
[2020-03-27] MEDS: OXYTOCIN/SODIUM CHLORIDE 500 ML IV SCH (17:48)
[2020-03-27] MEDS: SERTRALINE 50 MG TABLET PO SCH (17:50)
--- NOTE | 2020-03-27 18:37 | PROVIDER PROGRESS NOTE ---
Subjective - Prog Note Date Prog Note Date: 03/27/20 Prog Note Time: 08:45 - Subjective Subjective: Patient is doing well. Up and ambulating. Tolerating po. Voiding. Minimal pain and bleeding has been light to moderate. BPs wnl and PIH labs normal. Objective - Vital Signs/Intake & Output Vital Signs: Vital Signs x48h Temp Pulse Resp BP Pulse Ox 03/27/20 15:22 97.7 F 83 18 101/72 100 03/27/20 12:05 97.9 F 88 111/75 100 Intake & Output: Intake & Output 03/24/20 03/25/20 03/26/20 03/27/20 23:59 23:59 23:59 23:59 Intake Total 2504.6 1000 Output Total 2545 250 Balance -40.4 750 - Objective General Appearance: positive: No acute distress Respiratory: positive: No respiratory distress, Breath sounds nml Cardiovascular: positive: Regular rate & rhythm Abdomen: positive: Non-tender, Other (S&NT/ND. FF below umbi) Extremities: positive: Non-tender, No pedal edema Neurologic/Psychiatric: positive: Oriented x3 - Lab Results Fish Bones: 03/26/20 22:02 Other Labs: Lab Results x24hrs 03/26/20 03/26/20 03/26/20 Range/Units 22:02 22:02 22:02 WBC 21.0 H (4.8-10.8) x10^3/uL RBC 4.48 (4.20-5.40) 10^6/uL Hgb 10.9 L (12.0-16.0) g/dL Hct 37.3 (37.0-47.0) % MCV 83.3 (81.0-99.0) fL MCH 24.3 L (27.0-31.0) pg MCHC 29.2 L (32.0-36.0) g/dL RDW (12.0-15.0) % Plt Count 297 (130-450) 10^3/uL MPV 9.9 (7.9-10.8) fL Neut # (Auto) 17.7 H (1.5-6.6) 10^3/uL Lymph # (Auto) 2.1 (1.5-3.5) 10^3/uL [place] # (Auto) 1.0 (0.0-1.0) 10^3/uL Eos # (Auto) 0.0 (0.0-0.7) 10^3/uL Baso # (Auto) 0.1 (0.0-0.1) 10^3/uL Absolute Nucleated RBC 0.00 x10^3/uL Nucleated RBC % 0.0 /100WBC Manual Slide Review Indicated Platelet Estimate NORMAL (130-450,000) (NORMAL) Platelet Morphology NORMAL APPEARANCE (NORMAL) RBC Morph Micro Appear 3+ POIKILOCYTOSIS (NORMAL) Uric Acid 4.4 (2.6-7.2) mg/dL AST 27 (10-42) IU/L Lactate Dehydrogenase 175 (91-225) IU/L Assessment/Plan - Problem List (1) Vaginal delivery Impression: Doing well in pp period Cont with routine pp care Anticipate 48 hrs observation for prolonged rupture of membranes. Likely DC home Wed am vs Friday pm per Pediatric care plan Inpatient care
[2020-03-27] MEDS ORDERED: oxyCODONE 5 MG TABLET PO ONE (21:09)
[2020-03-28] MEDS: ACETAMINOPHEN 500 MG TABLET PO SCH ×2 (02:11→09:36)
[2020-03-28] MEDS: IBUPROFEN 600 MG TABLET PO SCH ×2 (09:36→16:31)
[2020-03-28] MEDS: SERTRALINE 50 MG TABLET PO SCH (11:28)
--- NOTE | 2020-03-28 14:37 | Discharge Plan ---
Discharge Plan Problem Reviewed?: Yes Disposition: Home, Self Care Condition: Good Diet: Regular Activity Restrictions: Additional Comments (Nothing in the vagina for 6 weeks: No intercourse, tampons, douching Call for: -Fever greater than 100.5 - Pain that does not improve with pain medication -Heavy bleeding in which you are soaking a pad an hour for 2 hours in a row) Weight Bearing: Full Weight Additional Instructions or Follow Up instructions: Ibuprofen 600 mg by mouth every 6 hours as needed for pain Acetaminophen 500-1000 mg by mouth every 8 hours as needed for pain Docusate 100-200 mg by mouth twice a day as needed for constipation No Smoking: If you smoke, Please STOP! Call for help. Follow-up with: Karen Claudio ARNP [Primary Care Provider] -
[2020-03-28] MEDS: ACETAMINOPHEN 325 MG TABLET PO PRN (16:34)
[2020-03-28 17:18] VITALS: BP 120/87
--- NOTE | 2020-03-28 21:51 | Labor Flowsheet ---
Labor Flowsheet Datetime Report Generated by CPN: 03/28/2020 21:51 Datetime: 03/27/2020 04:43 VITAL SIGNS NBP Sys/Deborah/Mean (mmHg): 127 : 83 : 93 Pulse: 105 LaborFlag: Labor Datetime: 03/26/2020 22:38 Patient Care Comments: 135/85 BP taken manually. Pt. shivering. Datetime: 03/26/2020 22:10 SpO2 (%): 100 Datetime: 03/26/2020 21:27 Medication Comments: hemabate given Datetime: 03/26/2020 21:17 MEDICATIONS Pitocin (milliunits): Decreased to @ 999 Cervical Ripening Agents: Cytotec @ Datetime: 03/26/2020 21:07 UTERINE ACTIVITY Monitor Mode: External Frequency (min): 1.5-3 Quality: Strong Duration (sec): 60 Pattern: Normal: <= 5 Contractions in 10 Minutes Resting Tone (Palpate): Relaxed ASSESSMENT A Monitor Mode: External US FHR Baseline Changes: No Baseline Change Variability: Moderate 6-25 bpm Accelerations: 15X15 Decelerations: Early Comments: maternal heart recorded due to pt. positioning and pushing. Datetime: 03/26/2020 21:00 Pain Presence: None/Denies Anesthesia Comments: bolus effective. no left lower abd pain. Datetime: 03/26/2020 20:57 STAGE 2 Stage 2 Comments: pushing Datetime: 03/26/2020 20:48 VAGINAL EXAM Dilatation (cm): 9.5 Effacement (%): 100 Station: 2 Exam by: Dr. Schofield Datetime: 03/26/2020 20:46 COMMUNICATION Communication: Call/Page Placed to Provider Communication Comments: pt. feels the urge to push Datetime: 03/26/2020 20:43 Monitor Interventions for UA: [place] Adjusted Datetime: 03/26/2020 20:39 Patient Position/Activity: Left Extreme Datetime: 03/26/2020 20:30 Category: Category I Datetime: 03/26/2020 20:15 Vaginal Exam Comments: stretchy Datetime: 03/26/2020 20:00 PAIN Pain Scale: 6 Pain Type: Burning; Cramping Pain Location: Abdomen; Back; Left Groin Pain Relief Measures: Epidural Given; Comfort Measures Pain Coping: Breathing Through Contractions Pain Assessment Comments: contractions are more strong per pt. 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 Pt. also reports ctx being stronger. Datetime: 03/26/2020 19:02 Respirations: 17 Datetime: 03/26/2020 19:00 FHR Baseline Rate : 140 Oxygen Method: Room Air Datetime: 03/26/2020 18:00 Notification Reason: Labor Status Datetime: 03/26/2020 17:55 Cervix, Consistency: Soft Cervix, Position: Midposition Datetime: 03/26/2020 13:21 Vaginal Bleeding: None Datetime: 03/26/2020 13:07 Anesthesia Level Check: T10- Umbilicus Datetime: 03/26/2020 10:05 I/O Interventions: Clear Liquids Given Datetime: 03/26/2020 09:48 Hygiene: Peripad Changed Datetime: 03/26/2020 07:28 Antiemetics/Antacids: Zofran (mg) @ 4 Datetime: 03/26/2020 07:15 Monitor Interventions for FHR: Ultrasound Adjusted Datetime: 03/26/2020 06:36 Pitocin Checklist: At Least 1 Acceleration of 15 bpm x 15 Seconds in 30 Minutes or Adequate Variabi lity; No More than 1 Late Deceleration Occurred in Past 30 Minutes; No More than 2 Variable Decelerat ions > 60 Seconds in Duration and decreasing >60 bpm in 30 minutes; No More than 5 Uterine Contractio ns in 10 Minutes for any 20 Minute Interval Datetime: 03/26/2020 05:44 Epidural Procedure: Test Dose Datetime: 03/26/2020 05:34 ANESTHESIA Epidural Positioning: Sitting Datetime: 03/26/2020 04:02 TEACHING Instructional Method: Verbal Plan of Care: Plan of Care Discussed Labor/Induction: Labor Stages; Cervical Ripening; Augmentation; Meconium Pain Management: IV Narcotics; Epidural; Pain Scale/Goals; Comfort Measures Related: Common Discomforts of ; Maternal Physical Changes; Activity and Rest Teaching Comments: pt. very concerned about starting pitocin. pro's and con's gone over. Discussed POC regarding pitocin usage. Discussed epidural placement. Pt. would like to wait on epidural and start on a low dose pit first. Datetime: 03/26/2020 01:00 PATIENT CARE IV/Blood Work: IV Started; IV Infusing per Order
--- NOTE | 2020-04-01 16:48 | DISCHARGE SUMMARY ---
Discharge Summary Admit Date: 03/26/20 Discharge Date: 03/28/20 Discharging Provider: Kanwal Code Status: Attempt Resuscitation Condition at Discharge: Good Discharge Disposition: 01 Home, Self Care - DIAGNOSES Admission Diagnoses: IUP at 39+4 wga Spontaneous rupture of membranes Light meconium staining Discharge Diagnoses with Status of Each Condition: Same and delivery of term gestation - HPI History of Present Illness: Patient is a 25 yo admitted at 39+4 wga for SROM. Patient presented to triage with gross LOF at 23:30 on 03/25/2020. Initial SVE was 2/70/-2. Light meconium staining. Admitted for labor/augmentation of labor. - HOSPITAL COURSE Hospital Course: Patient is a 25 yo admitted at 39+4 wga for SROM. Patient presented to triage with gross LOF at 23:30 on 03/25/2020. Initial SVE was 2/70/-2. Light meconium staining. GBS negative. Patient progressed to 3 cm without augmentation and then was started on pitocin for augmentation. She reac hed a max dose of 16 mU/min without significant cervical change. Pitocin was discontinued. She was rested for 1 hour and then was given a single dose of misoprostol 50 mcg BC x1. She began luli spontaneously. Epidural for pain management. At approximately 20:30, she was 5/C/-1 station. Progressed to complete at 20:48. cat I tracing throughout Stage I. Transient mild range blood pressures while pushing. STAGE II: Patient started pushing at 20:57. She pushed well for 14 minutes to deliver a viable male at 21:11. He presented in direct OA and rotated to MONET with left shoulder anterior. Delivered to maternal abdomen. No nuchal cord. Cord clamped x2 at 1 minute of life. Brought to warmer by Pediatrics fur further assessment. Apgars were 7/9. STAGE III: Placenta delivered at 21:26 with manual expression. It was examined and found to be intact. Patient had brisk bleeding after delivery, relieved with bimanual massage, manual exploration of the uterus, pitocin, misoprostol 600 mcg BC x1 and hemabate 0.25 mg IM x1. She will be given cefazolin 2 g IV x1 post for ppx given manual exploration of the uterus. Perineum was examined and she did not have any lacerations. Total EBL was 300 cc. Post course was unremarkable. observed for additional 24 hours for prolonged rupture of membranes. - ALLERGIES Allergies/Adverse Reactions: Allergies Allergy/AdvReac Type Severity Reaction Status Date / Time gluten AdvReac Unknown Verified 03/20/20 15:17 latex AdvReac Itching Verified 10/01/19 16:54 Milk Containing Products AdvReac Unknown Verified 03/20/20 15:17 - MEDICATIONS Home Medications: Ambulatory Orders Medication Instructions Recorded Confirmed Docusate Sodium 100 mg PO DAILY #30 capsule 10/08/19 Naproxen 375 mg PO BID #20 tablet 10/08/19 - LABS Result Diagrams: 03/26/20 22:02 - FOLLOW UP Follow Up: 1 week fu with ANTONIO Broussard - TIME SPENT Time Spent in Discharge (Minutes): 30
== END 2020-03-28 21:11 | disposition home or self-care (01) | DRG 806 ==
LOC: WFO 23:22 → FBP 23:23 → WFO 03-26 00:08 → FBP 03-26 00:09
PROVIDERS: ADMIT Obstetrics & Gynecology; ATTEND Obstetrics & Gynecology
PROC: 10E0XZZ Delivery of Products of Conception, External Approach (ICD-10-PCS; principal; 2020-03-26)
DX: O77.0 Labor and delivery complicated by meconium in amniotic fluid (principal); O72.1 Other immediate postpartum hemorrhage; Z37.0 Single live birth; O99.02 Anemia complicating childbirth; D50.9 Iron deficiency anemia, unspecified; Z3A.39 39 weeks gestation of pregnancy; O75.89 Other specified complications of labor and delivery; R00.0 Tachycardia, unspecified; O99.344 Other mental disorders complicating childbirth; F41.9 Anxiety disorder, unspecified; O99.284 Endocrine, nutritional and metabolic diseases complicating childbirth; E07.9 Disorder of thyroid, unspecified; O63.0 Prolonged first stage (of labor)
CPT/HCPCS: 36415; 81599; 83615; 84450; 84550; 85025; 86780; 99213; A9270; J7120; Q0162

== ENCOUNTER 2020-03-29 14:30 | Outpatient (CLI) | payer OTHER ==
[2020-03-29 19:10] LABS: GLUCOSE, URINE (UA) NEGATIVE (NEGATIVE); KETONES,URINE (UA) TRACE mg/dL (NEGATIVE); LEUKOCYTE ESTERASE, URINE SMALL (NEGATIVE); NITRITE,URINE NEGATIVE (NEGATIVE); OCCULT BLOOD,URINE LARGE (NEGATIVE); PROTEIN,URINE 100 mg/dL (NEGATIVE); UROBILINOGEN,URINE 2 E.U./dL (NORMAL)
[2020-03-29 19:22] LABS: BACTERIA,URINE None Seen /HPF (None Seen); BILIRUBIN,URINE NEGATIVE (NEGATIVE); CLARITY,URINE CLOUDY (CLEAR); ICTOTEST,URINE NEGATIVE; RBC,URINE TNTC /HPF (0-5); SQUAMOUS EPITHELIAL CELL,UR NONE SEEN (<= Few)
== END 2020-03-29 23:59 | disposition home or self-care (01) ==
LOC: LAB.R 14:30
PROVIDERS: ATTEND Radiology Diagnostic Radiology
DX: N39.0 Urinary tract infection, site not specified (principal)
CPT/HCPCS: 81001; 87086

== ENCOUNTER 2020-05-10 07:00 | Outpatient (CLI) | payer OTHER ==
[2020-05-10 18:58] LABS: CANDIDA GROUP DNA NEGATIVE (NEGATIVE); CANDIDA KRUSEI DNA NEGATIVE (NEGATIVE); TRICHOMONAS VAGINALIS DNA NEGATIVE (NEGATIVE)
== END 2020-05-10 23:59 | disposition home or self-care (01) ==
LOC: LAB.R 07:00
PROVIDERS: ATTEND Advanced Practice Midwife
DX: N89.8 Other specified noninflammatory disorders of vagina (principal)
CPT/HCPCS: 87661; 87801

== ENCOUNTER 2020-08-05 15:57 | Outpatient (CLI) | payer OTHER ==
--- NOTE | 2020-08-07 08:15 | MRI Report ---
PROCEDURE: Brain W/O INDICATIONS: MIGRAINE TECHNIQUE: Noncontrast axial T1 spin echo, axial T2 fast spin echo, sagittal and axial FLAIR, coronal T2 fast sp in echo, axial gradient echo, axial diffusion and ADC through the brain. COMPARISON: None. FINDINGS: Image quality: Mildly compromised by metal artifact from ring that could not be removed on the left.. CSF Spaces: Basal cisterns are patent. No extra-axial fluid collections. Ventricles are normal in size and shape. Brain: No intracranial masses or hemorrhage. Orozco/white matter interface is normal. Brainstem appe ars normal. Diffusion-weighted images demonstrate no acute ischemic insult. No chronic ischemic ins ults. Normal intravascular flow voids are present. Skull and face: Calvarium has normal marrow signal. Orbits appear normal. Sinuses: Sinuses and mastoids are clear. IMPRESSION: A portion of the left temporal brain parenchyma extending on several simple sequences into the pariet al and occipital regions with somewhat poorly seen due to metal artifact from an earring that could n ot be removed by the patient. The study shows no evidence of mass, hemorrhage, or prior ischemic inju ry. A source of persistent migraines is not identified. Reviewed by: Henrry Mancuso MD on 08/07/2020 8:13 AM PST Approved by: Henrry Mancuso MD on 08/07/2020 8:13 AM PST Station ID: [id number]
== END 2020-08-05 15:58 | disposition home or self-care (01) ==
LOC: DI 15:57
PROVIDERS: ATTEND Physician Assistant Medical
DX: G43.909 Migraine, unspecified, not intractable, without status migrainosus (principal)
CPT/HCPCS: 70551

== ENCOUNTER 2020-08-11 07:00 | Outpatient (CLI) | payer OTHER | END 2020-08-11 23:59 | disposition home or self-care (01) | LOC: LAB.R 07:00 | PROVIDERS: ATTEND Family Medicine | DX: J06.9 Acute upper respiratory infection, unspecified (principal); Z20.828 Contact with and (suspected) exposure to other viral communicable diseases | CPT/HCPCS: 87275; 87276 ==

== ENCOUNTER 2020-08-29 10:15 | Emergency (ER) | payer OTHER ==
[2020-08-29 10:24] VITALS: BP 120/77
[2020-08-29 10:41] LABS: BASOPHILS % (AUTO) 0.2 %; EOSINOPHILS # (AUTO) 0.1 10^3/uL (0.0-0.7); EOSINOPHILS % (AUTO) 1.9 %; HGB - HEMOGLOBIN 12.4 g/dL (12.0-16.0); LYMPHOCYTES # (AUTO) 1.8 10^3/uL (1.5-3.5); LYMPHOCYTES % (AUTO) 33.5 %; MEAN CORPUSCULAR HEMOGLOBIN 28.6 pg (27.0-31.0); MEAN CORPUSCULAR HGB CONC 32.7 g/dL (32.0-36.0); MEAN CORPUSCULAR VOLUME 87.5 fL (81.0-99.0); MONOCYTES # (AUTO) 0.3 10^3/uL (0.0-1.0); MONOCYTES % (AUTO) 6.2 %; NEUTROPHILS # (AUTO) 3.1 10^3/uL (1.5-6.6); PLT - PLATELET COUNT 243 10^3/uL (130-450); RED BLOOD COUNT 4.33 10^6/uL (4.20-5.40); RED CELL DISTRIBUTION WIDTH 12.7 % (12.0-15.0); WHITE BLOOD COUNT 5.3 x10^3/uL (4.8-10.8)
[2020-08-29 10:46] LABS: BILIRUBIN,URINE NEGATIVE (NEGATIVE); GLUCOSE, URINE (UA) NEGATIVE (NEGATIVE); KETONES,URINE (UA) NEGATIVE (NEGATIVE); LEUKOCYTE ESTERASE, URINE NEGATIVE (NEGATIVE); NITRITE,URINE NEGATIVE (NEGATIVE); OCCULT BLOOD,URINE LARGE (NEGATIVE); PH,URINE 5.5 PH (5.0-7.5); PROTEIN,URINE TRACE mg/dL (NEGATIVE); UROBILINOGEN,URINE 0.2 (NORMAL) E.U./dL (NORMAL)
[2020-08-29 10:50] LABS: CLARITY,URINE CLEAR (CLEAR); HCG UR QUAL NEGATIVE
[2020-08-29 10:53] LABS: ALBUMIN 4.3 g/dL (3.2-5.5); ALBUMIN/GLOBULIN RATIO 1.5 (1.0-2.2); BILIRUBIN,TOTAL 0.8 mg/dL (0.2-1.0); CALCIUM 9.2 mg/dL (8.5-10.3); CREATININE 0.7 mg/dL (0.4-1.0); TOTAL PROTEIN 7.1 g/dL (6.7-8.2)
[2020-08-29 10:59] LABS: BACTERIA,URINE Many /HPF (None Seen); MUCUS,URINE Marked Strands; RBC,URINE TNTC /HPF (0-5); SQUAMOUS EPITHELIAL CELL,UR MANY Squamous (<= Few)
--- NOTE | 2020-08-29 11:24 | ED Physician Documentation ---
PD HPI FEMALE - Stated complaint Stated Complaint: FEMALE - Chief complaint Chief Complaint: Abd Pain - History obtained from History obtained from: Patient - Additional information Additional information: 25-year-old woman with past medical history of endometriosis, G2, P2 5 Months Presents with heavy vaginal bleeding for the past 5 days associated with intermittent lightheadedness and nausea. She was sent by her OB to check her blood work because she has been anemic in the past. 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 : None HEENT: None Psych: None Musculoskeletal: None Derm: None - Past Surgical History Past Surgical History: No /STREETSWEEPER OPERATOR: Other - Present Medications Home Medications: Ambulatory Orders Medication Instructions Recorded Confirmed Docusate Sodium 100 mg PO DAILY #30 capsule 10/08/19 06/23/20 Naproxen 375 mg PO BID #20 tablet 10/08/19 06/23/20 - Allergies Allergies/Adverse Reactions: Allergies Allergy/AdvReac Type Severity Reaction Status Date / Time gluten AdvReac Unknown Verified 08/29/20 10:17 latex AdvReac Itching Verified 08/29/20 10:17 Milk Containing Products AdvReac Unknown Verified 08/29/20 10:17 - Social History Does the pt smoke?: No Smoking Status: Never smoker Does the pt drink ETOH?: No Does the pt have substance abuse?: No - Immunizations Immunizations are current?: Yes - POLST Patient has POLST: No PD ED PE NORMAL - Vitals Vital signs reviewed: Yes - General General: Alert and oriented X 3 - HEENT HEENT: Atraumatic, PERRL, EOMI - Neck Neck: Supple, no meningeal sign - Cardiac Cardiac: RRR - Respiratory Respiratory: No respiratory distress, Clear bilaterally - Abdomen Abdomen: Soft, Non tender, Non distended - Female Female : Cooking Teacher present (daniele Winter. normal speculum/ female exam. blood in the vault) - Rectal Rectal: Deferred - Back Back: No CVA TTP - Derm Derm: Normal color - Extremities Extremities: No deformity - Neuro Neuro: Alert and oriented X 3 - Psych Psych: Normal mood, Normal affect Results - Vitals Vitals: Vital Signs - 24 hr 08/29/20 10:18 Temperature 36.9 C Heart Rate 85 Respiratory 18 Rate Blood Pressure 120/77 O2 Saturation 100 Oxygen O2 Source Room air - Labs Labs: Laboratory Tests 08/29/20 08/29/20 08/29/20 10:30 10:36 10:36 WBC 5.3 RBC 4.33 Hgb 12.4 Hct 37.9 MCV 87.5 MCH 28.6 MCHC 32.7 RDW 12.7 Plt Count 243 MPV 10.0 Neut # (Auto) 3.1 Lymph # (Auto) 1.8 [place] # (Auto) 0.3 Eos # (Auto) 0.1 Baso # (Auto) 0.0 Absolute Nucleated RBC 0.00 Nucleated RBC % 0.0 Sodium 141 Potassium 3.9 Chloride 108 Carbon Dioxide 25 Anion Gap 8.0 BUN 15 Creatinine 0.7 Estimated GFR (MDRD) 102 Glucose 90 Calcium 9.2 Total Bilirubin 0.8 AST 15 ALT 15 Alkaline Phosphatase 89 Total Protein 7.1 Albumin 4.3 Globulin 2.8 Albumin/Globulin Ratio 1.5 Lipase 36 Urine Color YELLOW Urine Clarity CLEAR Urine pH 5.5 Ur Specific [place] >=1.030 H Urine Protein TRACE Urine Glucose (UA) NEGATIVE Urine Ketones NEGATIVE Urine Occult Blood LARGE H Urine Nitrite NEGATIVE Urine Bilirubin NEGATIVE Urine Urobilinogen 0.2 (NORMAL) Ur Leukocyte Esterase NEGATIVE Urine RBC TNTC H Urine WBC 0-3 Ur Squamous Epith Cells MANY Squamous H Urine Bacteria Many H Urine Mucus Marked Strands Ur Microscopic Review INDICATED Urine Culture Comments NOT INDICATED Urine HCG, Qual NEGATIVE PD MEDICAL DECISION MAKING - ED course Complexity details: reviewed results, d/w patient ED course: 25-year-old woman with heavy menstrual bleeding, stable hemoglobin. Education given, return precautions given. Follow-up with [facility] with this week Departure - Departure Disposition: 01 Home, Self Care Clinical Impression: Vaginal bleeding, Mild anemia Condition: Good Instructions: Anemia Comments: You have been seen in the emergency department for screening for anemia and heavy vaginal bleeding. Your hemoglobin was 12.4 which is in the lower range of normal. You should follow-up with your [facility] this week. We did testing for gonorrhea and chlamydia on your request. There is no indication on your pelvic exam that you have a sexually transmitted infection, but the results will be able to be accessed on the patient health portal on our [facility] website. Return to the ED for any new or worsening symptoms. Discharge Date/Time: 08/29/20 11:31
== END 2020-08-29 11:31 | disposition home or self-care (01) ==
LOC: ED 10:15
DX: N93.9 Abnormal uterine and vaginal bleeding, unspecified (principal); D64.9 Anemia, unspecified
CPT/HCPCS: 36415; 80053; 81001; 81003; 81025; 83690; 85025; 87086; 99283; 99284

== ENCOUNTER 2020-09-12 16:42 | Outpatient (CLI) | payer OTHER ==
--- NOTE | 2020-09-13 09:52 | Ultrasound Report ---
PROCEDURE: Pelvic w/Transvaginal INDICATIONS: MENORRHAGIA TECHNIQUE: Real-time scanning was performed of the pelvic organs, with image documentation. Additional endovagi nal scanning was necessary due to incomplete visualization of the adnexal and endometrial structures by transabdominal scanning. COMPARISON: OB ultrasound dated 12/22/2019 and 11/19/2019. FINDINGS: Transabdominal scanning: Limited scanning through the kidneys shows no hydronephrosis. No pathologi c free abdominal or pelvic fluid. Endovaginal scanning: Uterus: Uterus is normal in size at 7.9 x 4.4 x 5.9 cm. The endometrium measures 12.8 mm in combine d thickness. There is no discrete uterine fibroid. No gross endometrial mass is identified. Some vas cularity is noted within endometrium. Trace amount of fluid is noted within endocervical canal. Ovaries: Right ovary measures 5.1 x 3.9 x 3.1 cm in size. Simple cysts with internal septation is no misa in right ovary measures 2.7 x 1.9 x 1.8 cm in size. Greater than 12 follicles are noted in right ovary. Left ovary measures 3.8 x 1.3 x 4.1 cm in size and contains greater than 12 follicles. No defi nite solid appearing ovarian lesion. No evidence of ovarian torsion. IMPRESSION: 1. Thickened endometrium with slight internal vascularity. No discrete endometrial mass is seen. Trac e amount of endocervical fluid. 2. Right ovarian cyst as above. Greater than 12 follicles are noted in bilateral ovaries. No gross so lid appearing ovarian lesion. No evidence of torsion. Reviewed by: Maurice Hughes MD on 09/13/2020 9:51 AM PST Approved by: Maurice Hughes MD on 09/13/2020 9:51 AM PST Station ID: [id number]
== END 2020-09-12 16:43 | disposition home or self-care (01) ==
LOC: DI 16:42
PROVIDERS: ATTEND Nurse Practitioner Obstetrics & Gynecology
DX: R93.89 Abnormal findings on diagnostic imaging of other specified body structures (principal); N83.291 Other ovarian cyst, right side

== ENCOUNTER 2020-10-12 08:00 | Outpatient (CLI) | payer OTHER | END 2020-10-12 23:59 | disposition home or self-care (01) | LOC: LAB.R 08:00 | PROVIDERS: ATTEND Physician Assistant Medical | DX: R05 Cough (principal); Z20.822 Contact with and (suspected) exposure to COVID-19 | CPT/HCPCS: 87275; 87276 ==

== ENCOUNTER 2020-10-15 13:26 | Emergency (ER) | payer OTHER ==
[2020-10-15 13:36] VITALS: BP 129/73
--- NOTE | 2020-10-15 13:47 | ED Physician Documentation ---
PD HPI HEENT - Stated complaint Stated Complaint: COUGH X8 DAYS - Chief complaint Chief Complaint: Resp - History obtained from History obtained from: Patient - Additional information Additional information: 8 days of nonproductive cough causing some mild chest pain and trouble breathing. She was seen in urgent care, strep and flu were negative and evidently there is a Covid test pending. She was given Tessalon which is not very helpful. She does not know if she has a fever, her thermometer is broken. Review of Systems Constitutional: reports: Chills. 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 : None HEENT: None Psych: None Musculoskeletal: None Derm: None - Past Surgical History Past Surgical History: No /BLEMISH REMOVER: Other - Present Medications Home Medications: Ambulatory Orders Medication Instructions Recorded Confirmed Docusate Sodium 100 mg PO DAILY #30 capsule 10/08/19 06/23/20 Naproxen 375 mg PO BID #20 tablet 10/08/19 06/23/20 Albuterol Sulf [Ventolin Hfa 1 - 2 puffs INH Q4HR PRN #1 inhaler 10/15/20 Inhaler] Codeine Sulfate 1 tab PO Q6H PRN #15 tablet 10/15/20 predniSONE [Deltasone] 20 mg PO [id number] #21 tab 10/15/20 - Allergies Allergies/Adverse Reactions: Allergies Allergy/AdvReac Type Severity Reaction Status Date / Time gluten AdvReac Unknown Verified 10/15/20 13:31 latex AdvReac Itching Verified 10/15/20 13:31 Milk Containing Products AdvReac Unknown Verified 10/15/20 13:31 - Social History Does the pt smoke?: No Smoking Status: Never smoker Does the pt drink ETOH?: No Does the pt have substance abuse?: No - Immunizations Immunizations are current?: Yes - POLST Patient has POLST: No PD ED PE NORMAL - Vitals Vital signs reviewed: Yes - General General: Alert and oriented X 3, No acute distress - Neck Neck: Supple, no meningeal sign, No bony TTP - Cardiac Cardiac: RRR, No murmur - Respiratory Respiratory: No respiratory distress, Other (Mild expiratory wheezing without focal findings) - Abdomen Abdomen: Non tender - Neuro Neuro: Alert and oriented X 3, Normal speech Results - Vitals Vitals: Vital Signs - 24 hr 10/15/20 13:31 Temperature 37.1 C Heart Rate 90 Respiratory 20 Rate Blood Pressure 129/73 O2 Saturation 99 Oxygen O2 Source Room air PD MEDICAL DECISION MAKING - ED course ED course: 25-year-old woman with persistent cough and mild wheezing. No evidence of bacterial infection. Two-view chest interpreted contemporaneously by me was negative. Departure - Departure Disposition: Home, Self Care Clinical Impression: Viral bronchitis Condition: Good Record reviewed to determine appropriate education?: Yes Instructions: ED Bronchitis Asthmatic Prescriptions: Albuterol Sulf [Ventolin Hfa Inhaler] 1 - 2 puffs INH Q4HR PRN #1 inhaler PRN Reason: Shortness Of Air/Wheezing Codeine Sulfate 1 tab PO Q6H PRN #15 tablet PRN Reason: Cough predniSONE [Deltasone] 20 mg PO [id number] #21 tab Comments: Return if you worsen. Follow-up with your doctor in a week if not improved. Discharge Date/Time: 10/15/20 14:34
--- NOTE | 2020-10-15 14:22 | XRAY Report ---
PROCEDURE: Chest 2 View X-Ray INDICATIONS: cough TECHNIQUE: 2 view(s) of the chest. COMPARISON: None. FINDINGS: Surgical changes and devices: Incidental note is made of body ornamentation artifact. Lungs and pleura: No pleural effusions or pneumothorax. Lungs are clear. Mediastinum: Mediastinal contours are normal. Heart size is normal. Bones and chest wall: No suspicious bony abnormalities. Minimal to mild levoconvex thoracolumbar sc lerotic curvature can be seen. Soft tissues appear unremarkable. IMPRESSION: No definite, focal infiltrates are seen. If there is strong clinical concern for a developing or new pulmonary process, please consider a shor t-term follow-up 2 view chest series, performed in deep inspiration. Reviewed by: Irvin Srivastava MD on 10/15/2020 1:20 PM [facility] Approved by: Irvin Srivastava MD on 10/15/2020 1:20 PM [facility] Station ID: [id number]
== END 2020-10-15 14:34 | disposition home or self-care (01) ==
LOC: ED 13:26
DX: J20.8 Acute bronchitis due to other specified organisms (principal); B97.89 Other viral agents as the cause of diseases classified elsewhere
CPT/HCPCS: 99283; 99284

== ENCOUNTER 2020-11-06 07:00 | Outpatient (CLI) | payer OTHER ==
--- NOTE | 2020-11-06 19:08 | XRAY Report ---
PROCEDURE: Chest 2 View X-Ray INDICATIONS: WHEEZING TECHNIQUE: 2 view(s) of the chest. COMPARISON: None. FINDINGS: Surgical changes and devices: None. Lungs and pleura: No pleural effusions or pneumothorax. Lungs are clear. Mediastinum: Mediastinal contours are normal. Heart size is normal. Bones and chest wall: No suspicious bony abnormalities. Soft tissues appear unremarkable. IMPRESSION: Source and wheezing is not seen. Reviewed by: Henrry Mancuso MD on 11/06/2020 7:06 PM [facility] Approved by: Henrry Mancuso MD on 11/06/2020 7:06 PM [facility] Station ID: [id number]
== END 2020-11-06 23:59 | disposition home or self-care (01) ==
LOC: DI.N 07:00
PROVIDERS: ATTEND Nurse Practitioner
DX: R06.2 Wheezing (principal)

== ENCOUNTER 2021-01-03 07:00 | Outpatient (CLI) | payer OTHER ==
[2021-01-03 18:25] LABS: HCT - HEMATOCRIT 33.8 % (37.0-47.0); HGB - HEMOGLOBIN 10.5 g/dL (12.0-16.0); MEAN CORPUSCULAR HEMOGLOBIN 24.8 pg (27.0-31.0); MEAN CORPUSCULAR HGB CONC 31.1 g/dL (32.0-36.0); MEAN CORPUSCULAR VOLUME 79.9 fL (81.0-99.0); MEAN PLATELET VOLUME 11.2 fL (7.9-10.8); RED BLOOD COUNT 4.23 10^6/uL (4.20-5.40); RED CELL DISTRIBUTION WIDTH 14.3 % (12.0-15.0); WHITE BLOOD COUNT 5.2 x10^3/uL (4.8-10.8)
[2021-01-03 19:50] LABS: THYROID STIMULATING HORMONE 1.31 uIU/mL (0.34-5.60)
[2021-01-03 20:17] LABS: FOLLICLE STIMULATING HORMONE 5.03 mIU/mL
[2021-01-03 20:18] LABS: LUTEINIZING HORMONE 6.43 mIU/mL
== END 2021-01-03 23:59 | disposition home or self-care (01) ==
LOC: LAB.WCP 07:00
PROVIDERS: ATTEND Obstetrics & Gynecology
DX: E28.2 Polycystic ovarian syndrome (principal); N92.0 Excessive and frequent menstruation with regular cycle
CPT/HCPCS: 36415; 81599; 82627; 83001; 83002; 83498; 84402; 84403; 84443; 85027